=== PATIENT | male | born 1980 | race Caucasian/White ===

== ENCOUNTER 2024-07-02 19:26 | Inpatient (IN) ==
[2024-07-02 21:13] LABS: Appearance Urine Clear (Clear); Bacteria Urine Automated None Seen (None Seen); Bilirubin Urine Negative (Negative); Blood Urine 3+ (Negative); Cast Urine Automated 0-2 /lpf (0-2); Color Urine Yellow; Epithelial Cell Urine Auto 0-2 /hpf (0-2); Glucose Urine UA 2+ (Negative); Ketones Urine Trace (Negative); Leukocyte Esterase Urine Negative (Negative); Nitrite Urine Negative (Negative); Protein Urine 1+ (Negative); Specific Gravity Urine 1.031 (1.000-1.030); Urobilinogen Urine Negative (Negative); WBC Urine Automated 0-5 /hpf (0-5); pH Urine 5.5 (4.5-7.5)
[2024-07-02 21:31] LABS: Albumin Globulin Ratio 0.8 (0.9-2); Albumin Level 3.9 gm/dl (3.4-5.0); BUN Creatinine Ratio 16.7 (10-20); Bilirubin,Total 0.4 mg/dl (0.2-1.0); Calcium 8.9 mg/dl (8.6-10.3); Creatinine Clr Calc Pharmacy 107.1 ml/min; Globulin 4.6 gm/dl (2.5-4.0); Magnesium 2.1 mg/dl (1.7-2.4); Potassium 3.6 mmol/L (3.5-5.1); Total Protein 8.5 gm/dl (6.0-8.3)
[2024-07-02 21:35] LABS: Troponin I High Sensitivity 9.3 pg/ml (0-20)
[2024-07-02 21:36] LABS: INR 0.9 (0.9-1.1); Partial Thromboplastin Time 26 Seconds (21-31); Prothrombin Time 10.3 Seconds (9.0-12.0)
[2024-07-02] MEDS: ACETAMINOPHEN 500 MG TAB PO STA (22:10)
[2024-07-02] MEDS: SODIUM CHLORIDE 0.9% 1,000 ML IV SCH (22:10)
[2024-07-02] MEDS: cefTRIAXone SODIUM 2,000 MG/50 ML BAG IV STA (22:10)
[2024-07-02 22:57] LABS: Basophils # (auto) 0.03 K/uL (0.00-0.20); Basophils % (auto) 0.3 %; Eosinophils # (auto) 0.07 K/uL (0.00-0.50); Eosinophils % (auto) 0.8 %; Immature Granulocytes # (auto) 0.05 K/uL (0.01-0.20); Immature Granulocytes % (auto) 0.6 %; Lymphocytes # (auto) 1.19 K/uL (1.20-3.40); Lymphocytes % (auto) 13.2 %; Mean Corpuscular Hemoglobin 25.1 pg (25.0-34.0); Mean Corpuscular Hgb Conc 33.3 g/dL (32.0-36.0); Mean Corpuscular Volume 75.3 fL (80.0-100.0); Monocytes % (auto) 11.1 %; Neutrophils # (auto) 6.67 K/uL (1.40-6.50); Platelet Count 195 K/uL (130-400); RDW Coefficient of Variation 13.2 % (11.5-14.5); RDW Standard Deviation 35.5 fL (36.4-46.3); Red Blood Count 5.18 M/uL (4.70-6.10); White Blood Count 9.01 K/ul (4.8-10.8)
--- NOTE | 2024-07-02 23:18 | Emergency Department Note ---
History of Present Illness General Chief complaint: Leg Injury/Pain Stated complaint: CELLULITIS, MOVING UP THE RT THIGH, SWELLING, PAIN Time Seen by Provider: 07/02/24 21:33 History of Present Illness Maximum Pain Intensity: 7 This 43-year-old male that was seen at urgent care and started on Keflex the other day presents ER for worsening right leg pain and swelling. Patient is a type II diabetic on metformin. He states his cellulitis has spread and is more painful and swollen to him. Patient denies chest pain, dyspnea, cough, congestion, flulike illness. Home Medications Medication Instructions Recorded Confirmed Type aspirin 81 mg tablet,delayed 81 mg PO DAILY 07/02/24 07/02/24 History release insulin glargine-yfgn 100 unit/mL 30 unit subcut HS 07/02/24 07/02/24 History (3 mL) subcutaneous pen lisinopril 20 1 tab PO DAILY 07/02/24 07/02/24 History mg-hydrochlorothiazide 25 mg tablet metformin 500 mg tablet,extended 1,000 mg PO BID 07/02/24 07/02/24 History release 24 hr multivitamin 1 tab PO DAILY 07/02/24 07/02/24 History tirzepatide 5 mg/0.5 mL 5 mg subcut WK 07/02/24 07/02/24 History subcutaneous pen injector (Mounjaro) Allergies Allergy/AdvReac Type Severity Reaction Status Date / Time No Known Drug Allergies Allergy Verified 05/19/24 08:37 Past Med/Surg History Problem List (Updated 07/02/24 @ 23:18 by Alisia Woods PA-C) Acute hyperglycemia (Acute) Cellulitis of leg, right (Acute) Hx of knee surgery Operation Date: 04/01/23 s/p Right Open Quadricep Tendon Repair(Right) - Rosaura Montiel Obstructive sleep apnea of adult (Acute) Headache upon awakening (Acute) Hypersomnolence Quadriceps tendon rupture Knee effusion Rupture of right quadriceps tendon Encounter for pre-operative examination Morbid obesity KEYON on CPAP (Acute) Medical History (Updated 07/02/24 @ 23:18 by Alisia Woods PA-C) History of local anesthesia with dental work requires twice as much per pt Diabetes mellitus, type 2 Uncontrolled per PCP records History of hypertension Surgical History (Updated 04/01/23 @ 15:38 by Peggy Manuel PA-C) History of wisdom tooth extraction History of myringotomy History of adenoidectomy Family History Father Hypertension Stroke Mother Parkinsons disease Family history of thyroid problem Social History Smoking Status: Never smoker Do You Dip or Chew Tobacco: No; Hx Alcohol Use: Yes Alcohol type: beer Alcohol Intake Frequency Comment: Occasional Hx Substance Use: No Preferred Language: [place] Stitcher Tape Controlled Machine Required: No Beliefs That Will Affect Care: None Current Living Situation: Alone Feels Safe at Home: Yes Assistive Devices: Glasses Review of Systems A total of 10 systems reviewed and were otherwise negative Physical Exam Vital Signs Vital Signs - 24 hr 07/02/24 19:47 07/02/24 20:58 07/02/24 20:59 Temperature 37.8 C H Temperature Source Oral Pulse Rate 112 H Pulse Rate [Right Finger] Pulse Rhythm [Right Finger] Pulse Strength [Right Finger] Respiratory Rate 18 Respiratory Effort / Characteristics Non-Labored Spontaneous Respiratory Depth Normal Respiratory Pattern Regular Blood Pressure 140/84 Blood Pressure [Right Arm] Blood Pressure Mean 102 Blood Pressure Mean [Right Arm] Blood Pressure Position [Right Arm] Pulse Oximetry 97 Oxygen Delivery Method Room Air Room Air Room Air Sepsis Recent Fever Within 48 Hours Yes Sepsis New/Unexplained Change in Mental Status No Sepsis Action Taken by Nursing No Action Required 07/02/24 21:32 07/02/24 21:33 07/02/24 22:00 Temperature Temperature Source Pulse Rate 117 H Pulse Rate [Right Finger] 114 H 111 H Pulse Rhythm [Right Finger] Regular Pulse Strength [Right Finger] Normal Respiratory Rate 17 18 Respiratory Effort / Characteristics Non-Labored Spontaneous Respiratory Depth Normal Normal Respiratory Pattern Blood Pressure Blood Pressure [Right Arm] 161/83 H 150/109 H Blood Pressure Mean Blood Pressure Mean [Right Arm] 109 122 Blood Pressure Position [Right Arm] Sitting Pulse Oximetry 97 99 Oxygen Delivery Method Room Air Room Air Sepsis Recent Fever Within 48 Hours Sepsis New/Unexplained Change in Mental Status Sepsis Action Taken by Nursing 07/02/24 23:00 07/03/24 01:33 Temperature Temperature Source Pulse Rate 97 H Pulse Rate [Right Finger] 106 H Pulse Rhythm [Right Finger] Pulse Strength [Right Finger] Respiratory Rate 25 H Respiratory Effort / Characteristics Non-Labored Respiratory Depth Normal Respiratory Pattern Regular Blood Pressure Blood Pressure [Right Arm] 161/87 H Blood Pressure Mean Blood Pressure Mean [Right Arm] 111 Blood Pressure Position [Right Arm] Pulse Oximetry 98 Oxygen Delivery Method Room Air Sepsis Recent Fever Within 48 Hours Sepsis New/Unexplained Change in Mental Status Sepsis Action Taken by Nursing VITALS: Vitals are noted on the nurse's note and reviewed by myself. Vital signs stable. GENERAL: Pleasant gentleman, in no acute distress, nondiaphoretic, well- developed well-nourished. SKIN: Capillary reflex less than 2 seconds. HEENT: Normocephalic. PERRLA. EOMI. Nares patent. Mucous membranes moist. Neck is supple without nuchal rigidity. HEART: Regular rate and rhythm LUNGS: Clear to auscultation bilaterally without wheezes, rales or rhonchi. No retractions or accessory muscle use. ABDOMEN: Positive bowel sounds x 4. Normal tympanic percussion. Soft, nontender, without masses or organomegaly. Maldonado sign negative. No guarding or rebound tenderness. no CVA tenderness MUSCULOSKELETAL: No gross musculoskeletal defects. Right thigh and lower leg erythematous and edematous concerning for cellulitis. Pedal pulses +2 equal and present bilaterally. Right groin tender to palpation concerning for reactive lymph nodes. NEURO: Patient was alert and oriented to person place and time. No focal neurological deficits. Course Administered Medications Discontinued Medications Acetaminophen (Acetaminophen 500 Mg Tab) 1,000 mg PO NOW STA Stop: 07/02/24 21:43 Last Admin: 07/02/24 22:10 Dose: 1,000 mg Documented By: WINTER Sodium Chloride (Nss) 1,000 mls @ 999 mls/hr IV .Q1H1M LEONOR Stop: 07/02/24 23:45 Last Infusion: 07/03/24 00:53 Dose: Infused Documented By: Admin: 07/02/24 23:44 Dose: 999 mls/hr Documented By: Infusion: 07/02/24 23:43 Dose: Infused Documented By: Admin: 07/02/24 22:10 Dose: 999 mls/hr Documented By: WINTER Ceftriaxone Sodium (Rocephin) 2,000 mg in 50 mls @ 100 mls/hr IV NOW STA Stop: 07/02/24 22:11 Last Infusion: 07/02/24 23:30 Dose: Infused Documented By: Admin: 07/02/24 22:10 Dose: 100 mls/hr Documented By: WINTER Insulin Glargine (Lantus Per Unit Charge) 30 units SQ NOW STA Stop: 07/02/24 23:51 Last Admin: 07/03/24 00:25 Dose: 30 units Documented By: SHUKRI Co-signed By: KADE Medical Decision Making Medical Records Attestation: I reviewed the patient's medical records. Home Medications Current Medication List: was personally reviewed by me Laboratory Data Attestation: I reviewed the patient's lab results. 07/02/24 22:36 07/02/24 20:50 Lab Results 07/02/24 07/02/24 07/02/24 Range/Units 20:50 20:55 22:36 WBC 9.01 (4.8-10.8) K/ul RBC 5.18 (4.70-6.10) M/uL Hgb 13.0 L (14.0-18.0) g/dl Hct 39.0 L (42.0-52.0) % MCV 75.3 L (80.0-100.0) fL MCH 25.1 (25.0-34.0) pg MCHC 33.3 (32.0-36.0) g/dL RDW Std Deviation 35.5 L (36.4-46.3) fL RDW Coeff of Erin 13.2 (11.5-14.5) % Plt Count 195 (130-400) K/uL MPV 10.0 (9.4-12.4) fL Immature Gran % (Auto) 0.6 % Neut % (Auto) 74.0 % Lymph % (Auto) 13.2 % [place] % (Auto) 11.1 % Eos % (Auto) 0.8 % Baso % (Auto) 0.3 % Neut # (Auto) 6.67 H (1.40-6.50) K/uL Lymph # (Auto) 1.19 L (1.20-3.40) K/uL [place] # (Auto) 1.00 H (0.11-0.59) K/uL Eos # (Auto) 0.07 (0.00-0.50) K/uL Baso # (Auto) 0.03 (0.00-0.20) K/uL Immature Gran # (Auto) 0.05 (0.01-0.20) K/uL PT 10.3 (9.0-12.0) Seconds INR 0.9 (0.9-1.1) APTT 26 (21-31) Seconds PTT Ratio 1.0 Sodium 131 L (136-145) mmol/L Potassium 3.6 (3.5-5.1) mmol/L Chloride 96 L (98-107) mmol/L Carbon Dioxide 27 (21-32) mmol/L Anion Gap 8 (3-11) BUN 21 (6-23) mg/dl Creatinine 1.26 (0.6-1.4) mg/dl Est Cr Clr Drug Dosing 107.1 ml/min eGFR 72.13 BUN/Creatinine Ratio 16.7 (10-20) Glucose 317 H* (70-99(Fasting)) mg/dl Lactate 1.8 (0.4-2.0) mmol/L Calcium 8.9 (8.6-10.3) mg/dl Magnesium 2.1 (1.7-2.4) mg/dl Total Bilirubin 0.4 (0.2-1.0) mg/dl AST 12 L (13-39) U/L ALT 20 (7-52) U/L Alkaline Phosphatase 95 (34-104) U/L Troponin I High Sens 9.3 (0-20) pg/ml Total Protein 8.5 H (6.0-8.3) gm/dl Albumin 3.9 (3.4-5.0) gm/dl Globulin 4.6 H (2.5-4.0) gm/dl Albumin/Globulin Ratio 0.8 L (0.9-2) Procalcitonin 0.47 (0-0.5) ng/ml Urine Color Yellow Urine Appearance Clear (Clear) Urine pH 5.5 (4.5-7.5) Ur Specific [place] 1.031 H (1.000-1.030) Urine Protein 1+ H (Negative) Urine Glucose (UA) 2+ H (Negative) Urine Ketones Trace H (Negative) Urine Blood 3+ H (Negative) Urine Nitrite Negative (Negative) Urine Bilirubin Negative (Negative) Urine Urobilinogen Negative (Negative) Ur Leukocyte Esterase Negative (Negative) Urine WBC (Auto) 0-5 (0-5) /hpf Urine RBC (Auto) 6-10 H (0-2) /hpf U Hyaline Cast (Auto) 0-2 (0-2) /lpf U Epithel Cells (Auto) 0-2 (0-2) /hpf Urine Bacteria (Auto) None Seen (None Seen) Imaging Data Attestation: I personally reviewed and interpreted this imaging study as follows: Radiologist's Impression: Chest X-Ray 07/02/24 19:51 Exam(s): XR CXR 1 VIEW EXAM: XR Chest, 1 View CLINICAL HISTORY: Reason for exam: Sepsis. TECHNIQUE: Frontal view of the chest. COMPARISON: No relevant prior studies available. FINDINGS: Lungs: Unremarkable. No consolidation. Pleural space: Unremarkable. No pleural effusion or pneumothorax. Heart: Unremarkable. No cardiomegaly or pulmonary vascular congestion. Bones/joints: No acute fracture. No dislocation. IMPRESSION: No evidence of acute cardiopulmonary disease. Electronically signed by: Sukumar Lees M.D. 07/03/24 01:27 AM Venous Doppler Study 07/02/24 19:52 Exam(s): US VENOUS RIGHT LOWER EXTREMITY EXAM: US Duplex Right Lower Extremity Veins CLINICAL HISTORY: Reason for exam: reddness swelling. TECHNIQUE: Real-time duplex ultrasound scan of the right lower extremity veins integrating B-mode two-dimensional vascular structure, Doppler spectral analysis, color flow Doppler imaging and compression. COMPARISON: No relevant prior studies available. FINDINGS: Deep veins: Unremarkable. No DVT in the visualized common femoral, femoral, proximal deep femoral or popliteal veins. The veins demonstrate normal color flow, are normally compressible, with normal phasic flow and/or augmentation response. Superficial veins: Unremarkable. No thrombus in the visualized great saphenous vein. Soft tissues: Soft tissue edema and enlarged right inguinal lymph nodes. IMPRESSION: 1. Enlarged right inguinal lymph nodes may be reactive. Soft tissue edema may represent cellulitis. 2. No evidence of acute DVT. Electronically signed by: Sukumar Lees M.D. 07/03/24 01:22 AM MDM Narrative Prior records reviewed and summarized as above. Triage Nursing notes reviewed. Additional history obtained from nursing. The patient's history was concerning for swelling and redness of the skin. Differential diagnosis: Etiologies such as cellulitis, abscess, MRSA infection, DVT, necrotizing fasciitis, dermatitis, drug eruption, as well as others were entertained.. Physical examination: The physical examination was consistent with cellulitis ER treatment provided: Rocephin, IV fluids On reassessment the patient felt better. Diagnostics interpreted by me: The labs Independently Interpreted by myself revealed hyperglycemia without DKA. Negative lactic Imaging studies: Imaging was reviewed and read by radiology Consultation: A consultation was placed with the hospitalist. The case was discussed and diagnostics were reviewed. The patient was evaluated in the ER for further treatment. This appears to be worsening right leg cellulitis. Symptoms described greatly over the past day despite being on antibiotics. His blood sugars quite elevated. No DKA. He was started on IV antibiotics. Medicine was consulted the case is discussed. He will be admitted to the medical service. By the evaluation outlined above emergent etiologies such as abscess, necrotizing fasciitis, DVT, as well as others were deemed relatively unlikely. The pt informed about the findings as listed above. All questions were answered and pleased with the treatment. The chart was completed utilizing [email or web address] Speech voice recognition software. Grammatical errors, random word insertions, pronoun errors, and incomplete sentences are an occassional consequence of this system due to software limitations, ambient noise, and hardware issues. Any formal questions or concerns about the content, text, or information contained within the body of this dictation should be directly addressed to the physician clinical medical assistant for clarification. Impression & Plan Cellulitis of leg, right, Acute hyperglycemia Discharge Plan Visit Data Chief Complaint: Leg Injury/Pain Stated Complaint: CELLULITIS, MOVING UP THE RT THIGH, SWELLING, PAIN ED Provider: Chris Russell ED Midlevel Provider: Alisia Woods Discharge Problem: Cellulitis of leg, right, Acute hyperglycemia Patient Disposition: Admitted As Inpatient Condition: Good Forms Stand Alone Forms: My [facility] [place] Prescriptions Prescriptions: No Action multivitamin Tablet 1 tab PO DAILY aspirin 81 mg Tablet,Delayed Release (Dr/Ec) 81 mg PO DAILY lisinopril-hydrochlorothiazide 20-25 mg tablet 1 tab PO DAILY metformin 500 mg tablet extended release 24 hr 1,000 mg PO BID insulin glargine-yfgn 100 unit/mL (3 mL) insulin pen 30 unit SUBCUT HS Mounjaro 5 mg/0.5 mL pen injector 5 mg SUBCUT WK Referrals Referrals: Autumn Castellanos CRNP [Primary Care Provider] -
--- NOTE | 2024-07-02 23:44 | History & Physical Report ---
Date of Service July 02, 2024 Assessment & Plan (1) Cellulitis of leg, right: Plan: 43-year-old male with past med history significant for type 2 diabetes, sleep apnea, nocturnal hypoxemia, chronic venous stasis dermatitis of both lower extremities, hypertension, obesity, history of cellulitis of left lower extremity, attention deficit non hyperactive presents with right lower EXTR cellulitis. Patient developed some erythema in the right lower extremity on 06/30/2023. Went to urgent care and prescribed Keflex 500 milligrams twice daily. But right lower extremity edema and pain was getting worse The erythema streak spreading to thighs.. Last night he had some fever. Able to ambulate but having lot of pain in the right leg. Hemodynamics are okay. Denies any chest pain or shortness of breath no nausea. No abdominal pain. Normal bowel and bladder movements. No headache no runny nose or sore throat. No cough. Cellulitis right leg Failed outpatient treatment Will follow Doppler Received Rocephin in the ER Continue with IV cefepime and Vanco Follow cultures Monitor the response Diabetes Hyperglycemia Continue home Lantus Sliding scale Closely monitor Obstructive sleep apnea CPAP nightly Hypertension Continue home lisinopril hydrochlorothiazide Will monitor DVT prophylaxis hep sub q Disposition med floor Full code History of Present Illness Chief Complaint: Right leg cellulitis Primary Care Provider: LV Cain 43-year-old male with past med history significant for type 2 diabetes, sleep apnea, nocturnal hypoxemia, chronic venous stasis dermatitis of both lower extremities, hypertension, obesity, history of cellulitis of left lower extremity, attention deficit non hyperactive presents with right lower EXTR cellulitis. Patient developed some erythema in the right lower extremity on 06/30/2023. Went to urgent care and prescribed Keflex 500 milligrams twice daily. But right lower extremity edema and pain was getting worse The erythema streak spreading to thighs.. Last night he had some fever. Able to ambulate but having lot of pain in the right leg. Hemodynamics are okay. Denies any chest pain or shortness of breath no nausea. No abdominal pain. Normal bowel and bladder movements. No headache no runny nose or sore throat. No cough. Past medical history. As mentioned above Past surgical history. Reconstruction of middle ear and mastoid. Adenoidectomy. Social history. No smoking. Alcohol 1 beer per week. No drug use. Family history. Mother has arthritis. Parkinsonism. Thyroid disorder. Father has dyslipidemia. Hypertension. Uncle has diabetes. Maternal grandmother had parkinsonism. Allergies Allergy/AdvReac Type Severity Reaction Status Date / Time No Known Drug Allergies Allergy Verified 05/19/24 08:37 Home Medications Medication Instructions Recorded Confirmed Type aspirin 81 mg tablet,delayed 81 mg PO DAILY 07/02/24 07/02/24 History release insulin glargine-yfgn 100 unit/mL 30 unit subcut HS 07/02/24 07/02/24 History (3 mL) subcutaneous pen lisinopril 20 1 tab PO DAILY 07/02/24 07/02/24 History mg-hydrochlorothiazide 25 mg tablet metformin 500 mg tablet,extended 1,000 mg PO BID 07/02/24 07/02/24 History release 24 hr multivitamin 1 tab PO DAILY 07/02/24 07/02/24 History tirzepatide 5 mg/0.5 mL 5 mg subcut WK 07/02/24 07/02/24 History subcutaneous pen injector (Philippundarrenro) Past Med/Surg History Problem List (Updated 07/02/24 @ 23:18 by Alisia Woods PA-C) Acute hyperglycemia (Acute) Cellulitis of leg, right (Acute) Hx of knee surgery Operation Date: 04/01/23 s/p Right Open Quadricep Tendon Repair(Right) - Rosaura Montiel Obstructive sleep apnea of adult (Acute) Headache upon awakening (Acute) Hypersomnolence Quadriceps tendon rupture Knee effusion Rupture of right quadriceps tendon Encounter for pre-operative examination Morbid obesity KEYON on CPAP (Acute) Medical History (Updated 07/02/24 @ 23:18 by Alisia Woods PA-C) History of local anesthesia with dental work requires twice as much per pt Diabetes mellitus, type 2 Uncontrolled per PCP records History of hypertension Surgical History (Updated 04/01/23 @ 15:38 by Peggy Manuel PA-C) History of wisdom tooth extraction History of myringotomy History of adenoidectomy Family History Father Hypertension Stroke Mother Parkinsons disease Family history of thyroid problem Social History Smoking Status: Never smoker Do You Dip or Chew Tobacco: No; Hx Alcohol Use: Yes Alcohol type: beer Alcohol Intake Frequency Comment: Occasional Hx Substance Use: No Preferred Language: Salvadorean Communication Ability: Effective Manager Of Organizational Development Required: No Beliefs That Will Affect Care: None Current Living Situation: Alone Current Living Situation Comment: lives alone in a 2 story home Other Information That Helps Us Care for You: No Feels Safe at Home: Yes Safety Concerns: Feels Safe At This Time Assistive Devices: CPAP and Glasses Review of Systems Review of Systems: All systems reviewed & are unremarkable except as noted in HPI & below Physical Exam Physical Exam: General- Not in distress Head- atraumatic Eyes- PERRL. ENT- oropharynx clear Neck- supple, no JVD. Lungs- clear to auscultation no wheezing or crackles Heart- regular rate and rhythm; no murmur, no gallop. Abdomen- normal bowel sounds, soft, nontender, no distension. Extremities- right lower extremity dstal region erythematous and mild erythema streak seen in medial aspect of thigh. Neuro- alert, orientedPERRL, EOMI; no facial palsy; no dysarthria; moves extremities Results & Data Results & Data Vital Signs (Past 12 Hours) Vital Signs Temp Pulse Pulse Resp BP BP Pulse Ox 07/02/24 23:00 106 H 25 H 161/87 H 98 07/02/24 22:00 111 H 18 150/109 H 99 07/02/24 21:33 117 H 07/02/24 21:32 114 H 17 161/83 H 97 07/02/24 20:59 07/02/24 20:58 07/02/24 19:47 37.8 C H 112 H 18 140/84 97 O2 Del Method 07/02/24 23:00 Room Air 07/02/24 22:00 Room Air 07/02/24 21:33 07/02/24 21:32 Room Air 07/02/24 20:59 Room Air 07/02/24 20:58 Room Air 07/02/24 19:47 Room Air Diagnostic Findings Laboratory Results WBC 9.01 K/ul (4.8-10.8) 07/02/24 22:36 RBC 5.18 M/uL (4.70-6.10) 07/02/24 22:36 Hgb 13.0 g/dl (14.0-18.0) L 07/02/24 22:36 Hct 39.0 % (42.0-52.0) L 07/02/24 22:36 MCV 75.3 fL (80.0-100.0) L 07/02/24 22:36 MCH 25.1 pg (25.0-34.0) 07/02/24 22:36 MCHC 33.3 g/dL (32.0-36.0) 07/02/24 22:36 RDW Std Deviation 35.5 fL (36.4-46.3) L 07/02/24 22:36 RDW Coeff of Erin 13.2 % (11.5-14.5) 07/02/24 22:36 Plt Count 195 K/uL (130-400) 07/02/24 22:36 MPV 10.0 fL (9.4-12.4) 07/02/24 22:36 Immature Gran % (Auto) 0.6 % 07/02/24 22:36 Neut % (Auto) 74.0 % 07/02/24 22:36 Lymph % (Auto) 13.2 % 07/02/24 22:36 [place] % (Auto) 11.1 % 07/02/24 22:36 Eos % (Auto) 0.8 % 07/02/24 22:36 Baso % (Auto) 0.3 % 07/02/24 22:36 Neut # (Auto) 6.67 K/uL (1.40-6.50) H 07/02/24 22:36 Lymph # (Auto) 1.19 K/uL (1.20-3.40) L 07/02/24 22:36 [place] # (Auto) 1.00 K/uL (0.11-0.59) H 07/02/24 22:36 Eos # (Auto) 0.07 K/uL (0.00-0.50) 07/02/24 22:36 Baso # (Auto) 0.03 K/uL (0.00-0.20) 07/02/24 22:36 Immature Gran # (Auto) 0.05 K/uL (0.01-0.20) 07/02/24 22:36 PT 10.3 Seconds (9.0-12.0) 07/02/24 20:50 INR 0.9 (0.9-1.1) 07/02/24 20:50 APTT 26 Seconds (21-31) 07/02/24 20:50 PTT Ratio 1.0 07/02/24 20:50 Sodium 131 mmol/L (136-145) L 07/02/24 20:50 Potassium 3.6 mmol/L (3.5-5.1) 07/02/24 20:50 Chloride 96 mmol/L (98-107) L 07/02/24 20:50 Carbon Dioxide 27 mmol/L (21-32) 07/02/24 20:50 Anion Gap 8 (3-11) 07/02/24 20:50 BUN 21 mg/dl (6-23) 07/02/24 20:50 Creatinine 1.26 mg/dl (0.6-1.4) 07/02/24 20:50 Est Cr Clr Drug Dosing 107.1 ml/min 07/02/24 20:50 eGFR 72.13 07/02/24 20:50 BUN/Creatinine Ratio 16.7 (10-20) 07/02/24 20:50 Glucose 317 mg/dl (70-99(Fasting)) H* 07/02/24 20:50 Lactate 1.8 mmol/L (0.4-2.0) 07/02/24 20:50 Calcium 8.9 mg/dl (8.6-10.3) 07/02/24 20:50 Magnesium 2.1 mg/dl (1.7-2.4) 07/02/24 20:50 Total Bilirubin 0.4 mg/dl (0.2-1.0) 07/02/24 20:50 AST 12 U/L (13-39) L 07/02/24 20:50 ALT 20 U/L (7-52) 07/02/24 20:50 Alkaline Phosphatase 95 U/L (34-104) 07/02/24 20:50 Troponin I High Sens 9.3 pg/ml (0-20) 07/02/24 20:50 Total Protein 8.5 gm/dl (6.0-8.3) H 07/02/24 20:50 Albumin 3.9 gm/dl (3.4-5.0) 07/02/24 20:50 Globulin 4.6 gm/dl (2.5-4.0) H 07/02/24 20:50 Albumin/Globulin Ratio 0.8 (0.9-2) L 07/02/24 20:50 Procalcitonin 0.47 ng/ml (0-0.5) 07/02/24 20:50 Urine Color Yellow 07/02/24 20:55 Urine Appearance Clear (Clear) 07/02/24 20:55 Urine pH 5.5 (4.5-7.5) 07/02/24 20:55 Ur Specific [place] 1.031 (1.000-1.030) H 07/02/24 20:55 Urine Protein 1+ (Negative) H 07/02/24 20:55 Urine Glucose (UA) 2+ (Negative) H 07/02/24 20:55 Urine Ketones Trace (Negative) H 07/02/24 20:55 Urine Blood 3+ (Negative) H 07/02/24 20:55 Urine Nitrite Negative (Negative) 07/02/24 20:55 Urine Bilirubin Negative (Negative) 07/02/24 20:55 Urine Urobilinogen Negative (Negative) 07/02/24 20:55 Ur Leukocyte Esterase Negative (Negative) 07/02/24 20:55 Urine WBC (Auto) 0-5 /hpf (0-5) 07/02/24 20:55 Urine RBC (Auto) 6-10 /hpf (0-2) H 07/02/24 20:55 U Hyaline Cast (Auto) 0-2 /lpf (0-2) 07/02/24 20:55 U Epithel Cells (Auto) 0-2 /hpf (0-2) 07/02/24 20:55 Urine Bacteria (Auto) None Seen (None Seen) 07/02/24 20:55 ECG Additional Comments: ECG sinus tachycardia rate of 113. Left axis deviation. Incomplete right bundle branch block. Code Status & VTE Plan VTE Prophylaxis Plan VTE Prophylaxis will be ordered: Yes
[2024-07-03] MEDS: LANTUS PER UNIT CHARGE SQ STA (00:25)
--- OUTSIDE RECORDS SUMMARY | 2024-07-03 01:00 | External Medical Summary | Summary of Care ---
Author Name Unknown Organization [facility] Address [address] [facility] [place] [place] [address] Phone [phone] Care Team Providers Care Distribution Operation Supervisor Name Role Phone Autumn Castellanos Primary Care Provider Encounter Details Date Type Department Care Team (Late st Contact Info) Description 06/11/2024 8:40 AM EST Office Visit Family Medicine [address] [place] [address] Marianela Jenkins PA-C [address] [place] [address] [place] [phone] [facility] Commercial Representative's Physical* Allergies Active Allergy Reactions Criticality Noted Date Comments Cat Dander 02/12/2007 Dust 02/12/2007 Shellfish Allergy Edema face/lips/tongue High 2014 fish documented as of this encounter (statuses as of 06/11/2024) Medications MULTI-VITAMIN PO TABS None Entered Active Blood Glucose Monitoring Suppl (D-CARE GLUCOMETER) W/DEVICE KIT Use 1 Kit as directed 2 times a day. verio Include test strips & lancets 1 Kit 1 7 Active aspirin 81 MG chewable tablet Take 1 Tab by mouth daily. with food. 100 Tab 5 8 Active OneTouch Ultra In Vitro Strip (Glucose Blood)Indication s:Type 2 diabetes mellitus with hemoglobin A1c goal of less than 7.0% ([facility]) USE ONCE DAILY DX: E11.9 100 Strip 3 3 Active Silver sulfADIAZINE 1 % External Cream (Silvadene) Apply to bilateral lower extremity wounds daily 50 g 1 4 Active Additional Information Patient not taking.Reported on 04/16/2024 Ibuprofen 200 MG Oral Tablet (Motrin) Take 3 Tablets by mouth at bedtime. 3 Active Pen Novi 32G X 4 MM Use as directed. Use to inject insulin once daily 4 Active Mounjaro 5 MG/0.5ML Subcutaneous Solution Pen-injector (Tirzepatide) Inject 5 mg under the skin once a week. 2 mL 11 4 11/24/19 25 Active metFORMIN HCl ER 500 MG Oral Tablet Extended Release 24 Hour (Glucophage XR) TAKE 2 TABLETS BY MOUTH TWICE A DAY 360 Tablet 4 Active Lisinopril-hydro CHLOROthiazide 20-25 MG Oral Tablet TAKE 1 TABLET BY MOUTH EVERY DAY IN THE MORNING 90 Tablet 4 Active Insulin Glargine Solostar 100 UNIT/ML Subcutaneous Solution Pen-injector (Lantus SoloStar) Inject 30 Units under the skin at bedtime. 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 Chronic venous stasis dermatitis of both lower e xtremities 09/25/2016 HTN, goal below 140/90 09/25/2016 Type 2 diabetes mellitus wit h hemoglobin A1c goal of less than 7.0% 07/02/2016 Nocturnal hypoxemia 02/09/2015 KEYON (obstructive sleep apnea) 02/03/2015 Overview (02/03/2015): Severe KEYON on HST 01/24/15: AHI was 80.6 with significant nocturnal hypoxemia ATTN DEFIC NONHYPERACT 12/20/2004 documented as of this encounter (statuses as of 06/11/2024) Resolved Problems Problem Noted Date Diagnosed Date Resolved Date Diabetes with skin ulcer 02/05/2017 HTN, goal below 130/80 09/25/201601/07 Obesity, morbid (more than 1 00 lbs over ideal weight or BMI > 40) 02/09/2015 10/29/2023 Body mass index (BMI) of 40.0-44.9 in adult 09/27/2010 03/20/2017 Overview: Per Obesity protocol #1 - ICD-10 update of inactive term Impacted cerumen 07/06/2009 02/02/2018 Acute bronchitis, complicated 05/09/2009 05/29/2016 ADVANCE DIRECTIVE INFORMATION 11/05/2005 04/19/2024 Overview (11/05/2005): Pt declines booklet. OBESITY, UNSPECIFIED 12/21/2004 011 Elevated blood pressure, situational 12/20/2004 09/25/2016 documented as of this encounter (statuses as of 06/11/2024) Immunizations Name Administration Dates Next Due COVID-19 mRNA, LNP-s, No Pre serve, 2-Dose Series (Pfizer) 07/04/2021,10/14/2020,09/23/2020 Hepatitis B, 20+ yrs 07/24/2019,05/28/2019,01/25 Pneumococcal Polysaccharide PPV23 (Pneumovax) 02/02/2018 Seasonal Influenza, PF, 6 M & above, IM , (FluLaval or Fluzone) 06/24/2023,03/26/2022,05/28/2019 Seasonal Influenza, Quadriva lent, No Preserve, IM 03/13/2016 TDAP (age 10 and older)(Boostrix) 01/25/2019 TDAP, Age 7 and older, IM (Adacel) 01/09/2009 documented as of this encounter Social History Tobacco Use Types Packs/Day Years Used Date Smoking Tobacco: Never Smokeless Tobacco: Never Alcohol Use Standard Drinks/Week Comments Yes 0 (1 standard drink = 0.6 oz pur e alcohol) 1 beer per week PHQ-2 Answer Date Recorded PHQ Adult Total Score 1 03/26/2022 Hunger Vital Sign Answer Date Recorded Within the past 12 months, y ou worried that your food would run out before you got the money to buy more. Never true 06/02/20 24 Within the past 12 months, t he food you bought just didn't last and you didn't have money to get more. Never true 06/02/2024 Childcare Answer Date Recorded Do you feel overwhelmed with taking care of a child, family member or friend? No 06/02/2024 Does your family need help f inding childcare? (Household - for ages 0-17 years) Not on file 06/02/2024 Clothing Answer Date Recorded Have you been unable to get clothing when it was really needed? No 06/02/2024 Is your family able to get c lothes or diapers when needed? (Household - for ages 0-17 years) Not on file 06/02/2024 Personal Safety Answer Date Recorded Do you feel unsafe or have concerns for your saf ety? No 06/02/2024 Do you have concerns for you r family's safety? (Household - for ages 0-17 years) Not on file 06/02/2024 Utilities Answer Date Recorded Do you have trouble paying y our heating, water, or electric bill? No 06/02/2024 Is your family able to pay t he heat, water, or electric bill? (Household - for ages 0-17 years) Not on file 06/02/2024 Does your family have access to good internet? (Household - for ages 0-17 years) Not on file 06/02/2024 Employment Status Answer Date Recorded Are you unemployed or without regular income? No 06/02/2024 Does the household have a re gular source of income? (Household - for ages 0-17 years) Not on file 06/02/2024 Social Connections Answer Date Recorded How often do you feel lonely or isolated from th ose around you? Never 06/02/2024 Financial Resource Strain Answer Date R ecorded Do you have any trouble payi ng for your medications, or do you think you might in the future? No 06/02/2024 Does your family have troubl e paying for medicine? (Household - for ages 0-17 years) Not on file 06/02/2024 Transportation Needs Answer Date Record ed Do you have trouble getting a ride to medical visits or work? (Adult - for ages 18 years and over) Not on file 06/02/2024 Does your family have a hard time getting a ride to doctors visits? (Household - for ages 0-17 years) Not on file 06/02/2024 Has lack of transportation k ept you from medical appointments, meetings, work, or from getting things needed for daily living? Check all that apply. No 06/02/2024 Do you (or your family) have trouble finding or paying for a ride (transportation)? (Household - for ages 0-17 years) Not on file 06/02/2024 Housing Stability Answer Date Recorded Do you currently live in a s helter or have no steady place to sleep at night? No 06/02/2024 Do you think you are at risk of becoming homeless? (Adult - for ages 18 years and over) Not on file 06/02/2024 Does your family worry about paying for your home or becoming homeless? (Household - for ages 0-17 years) Not on file 1 08/03/2023 Are you homeless or worried that you might be in the future? No 06/02/2024 Are you (or your family) julio eless or worried that you might be in the future? (Household - for ages 0-17 years) Not on file Food Insecurity Answer Date Recorded Do you need food for this week? No 06/02/2024 Are you able to get enough f ood for your family? (Household - for ages 0-17 years) Not on file 06/02/2024 Does your family need food t his week? (Household - for ages 0-17 years) Not on file 06/02/2024 Do you always have enough fo od for your family? (Household - for ages 0-17 years) Not on file 06/02/2024 Sex and Gender Information Value Date Recorded Sex Assigned at Male 03/25/2023 1:47 PM EDT Legal Sex Male 5:57 AM EST Gender Identity Male 03/25/2023 1:47 PM EDT Sexual Orientation Choose not to disclose 2022 1:47 PM EDT documented as of this encounter Last Filed Vital Signs Vital Sign Reading Time Taken Comments Blood Pressure - - Pulse 88 06/11/2024 8:17 AM EST Temperature 36.3 C (97.4 F) 06/11/2024 8:17 AM ES T Respiratory Rate - - Oxygen Saturation 96% 06/11/2024 8:17 AM EST Inhaled Oxygen Concentration - - Weight 153 kg (337 lb 6.4 oz) 06/11/2024 8:17 AM EST Height 190.5 cm (6' 3") 06/11/2024 8:17 AM EST Body Mass Index 42.17 06/11/2024 8:17 AM EST documented in this encounter Progress Notes * Marianela Jenkins PA-C - 06/11/2024 8:36 AM EST Pt here today for CDL PE. Review of patient's allergies indicates: Allergen Reactions Shellfish Allergy Edema face/lips/tongue fish Cat Dander Dust Current Outpatient Medications Medication Sig Dispense Refill MULTI-VITAMIN PO TABS None Entered Blood Glucose Monitoring Suppl (D-CARE GLUCOMETER) W/DEVICE KIT Use 1 Kit as directed 2 times a day. verio Include test strips & lancets 1 Kit 1 aspirin 81 MG chewable tablet Take 1 Tab by mouth daily. with food. 100 Tab 5 OneTouch Ultra In Vitro Strip (Glucose Blood) USE ONCE DAILY DX: E11.9 100 Strip 3 Silver sulfADIAZINE 1 % External Cream (Silvadene) Apply to bilateral lower extremity wounds daily (Patient not taking: Reported on 04/16/2024) 50 g 1 Ibuprofen 200 MG Oral Tablet (Motrin) Take 3 Tablets by mouth at bedtime. Pen Novi 32G X 4 MM Use as directed. Use to inject insulin once daily Mounjaro 5 MG/0.5ML Subcutaneous Solution Pen-injector (Tirzepatide) Inject 5 mg under the skin once a week. 2 mL 11 metFORMIN HCl ER 500 MG Oral Tablet Extended Release 24 Hour (Glucophage XR) TAKE 2 TABLETS BY MOUTH TWICE A DAY 360 Tablet 0 Lisinopril-hydroCHLOROthiazide 20-25 MG Oral Tablet TAKE 1 TABLET BY MOUTH EVERY DAY IN THE [id number] Tablet 0 Insulin Glargine Solostar 100 UNIT/ML Subcutaneous Solution Pen-injector (Lantus SoloStar) Inject 30 Units under the skin at bedtime. 30 mL 5 No current facility-administered medications for this visit. Past Medical History: Diagnosis Date Diabetes (HCC) Hypertension Social History Socioeconomic History Marital status: Single Spouse name: Not on file Number of children: Not on file Years of education: Not on file Highest education level: Not on file Occupational History Not on file Tobacco Use Smoking status: Never Smokeless tobacco: Never Vaping Use Vaping status: Never Used Substance and Sexual Activity Alcohol use: Yes Comment: 1 beer per week Drug use: No Sexual activity: Not on file Other Topics Concern Not on file Social History Narrative JANENE Regional Account Manager Social Needs Financial Resource Strain: Low Risk (06/02/2024) Financial Resource Strain Do you have any trouble paying for your medications, or do you think you might in the future? (Adult - for ages 18 years and over): No Does your family have trouble paying for medicine? (Household - for ages 0-17 years): Not on file Food Insecurity: No Food Insecurity (06/02/2024) Food Insecurity Do you need food for this week? (Adult - for ages 18 years and over): No Are you able to get enough food for your family? (Household - for ages 0-17 years): Not on file Does your family need food this week? (Household - for ages 0-17 years): Not on file Do you always have enough food for your family? (Household - for ages 0-17 years): Not on file Transportation Needs: No Transportation Needs (06/02/2024) Transportation Needs Do you have trouble getting a ride to medical visits or work? (Adult - for ages 18 years and over):Not on file Does your family have a hard time getting a ride to doctors visits? (Household - for ages 0-17 years): Not on file Has lack of transportation kept you from medical appointments, meetings, work, or from getting things needed for daily living? Check all that apply. (Adult - for ages 18 years and over): No Do you (or your family) have trouble finding or paying for a ride (transportation)? (Household - for ages 0-17 years): Not on file Social Connections: Socially Integrated (06/02/2024) Social Connections How often do you feel lonely or isolated from those around you? (Adult - for ages 18 years and over): Never Housing Stability: Low Risk (06/02/2024) Housing Stability Do you currently live in a group home or have no steady place to sleep at night? (Adult - for ages 18 years and over): No Do you think you are at risk of becoming homeless? (Adult - for ages 18 years and over): Not on file Does your family worry about paying for your home or becoming homeless? (Household - for ages 0-17 years): Not on file Are you homeless or worried that you might be in the future? (Adult - for ages 18 years and over): No Are you (or your family) homeless or worried that you might be in the future? (Household - for ages0-17 years): Not on file O: ICC Physical Examination [place] [employer] Date of exam: June 11, 2024 Certification: Recertification Commercial Representative's Name: Darius Callejas [address]: [address] [place] [id number] SSN: [id number] Date of : 1980 Age: [age] year old Sex: male Phone: Home/Work: There are no phone numbers on file. Commercial Representative License No: [id number] License class-A,B,C,D, other: State of issue: [place] Health History: Any illness or injury in the last 5 years: no Head/Brain injuries, disorders or illnesses: no Seizures, epilepsy: no If yes- Medication: na Eye disorders or impaired vision (except corrective lenses): no Ear disorders, loss of hearing or balance: no Heart disease or heart attack; other cardiovascular condition: no If yes- Medication: na Heart surgery (valve replacement/bypass, angioplasty, pacemaker): no High blood pressure: yes: HTN If yes-Medication: lisinopril/HCTZ Shortness of breath: no Lung disease, emphysema, asthma, chronic bronchitis: no Kidney disease, dialysis: no Liver disease: no Digestive problems: no Diabetes or elevated blood sugar controlled by: yes: DM Diet/pills/insulin: insulin - mounjaro Nervous or psychiatric disorders, e.g., servere depression: no If yes- Medication: Loss of,or altered consciousness: no Fainting, dizziness: no Sleep disorders, pauses in breathing while asleep, daytime sleepiness, loud snoring: no Stroke or paralysis: no Missing or impaired hand, arm, foot, leg, finger, toe: no Spinal injury or disease: no Chronic low back pain: no Regular, frequent alcohol use: no Narcotic or habit forming drug use: no For any YES answer, indicate onset date, diagnosis, treating physicians name and address, and any curret limitations: List all medications (including over the counter medications) used regularly or recently. General appearance and development: Vision: acuity, color vision, field of vision as noted above Evidence of disease or injury: Right: no Right: 20/25 Left: no Left: 20/20 Both: no Both: 20/20 Corrected: Horizontal Field Of Vision: Right eye: 20/25 Right eye: 90 Left eye: 20/20 Left eye: 90 Applicant can recognize and distinguish amount traffic control signals and devices showing standardred, green and annelise: yes Applicant meets visual acuity requirement only when wearing: Corrective lenses: yes Monocular Vision: no Hearing: Audiometric screen as noted above. Right: Normal Left: Normal Evidence of disease or injury: no Pulse 88 | Temp 97.4 F (36.3 C) (Tympanic) | Ht 6' 3" (1.905 m) | Wt (!) 337 lb 6.4 oz (153 kg)| SpO2 96% | BMI 42.17 kg/m | BSA 2.85 m General appearance: normal Eyes: Normal Ears: Normal Mouth/Throat: Normal Thorax: Heart: Normal If organic disease is present, is it fully compensated? N/A Blood Pressure: 122/86 Pulse: 88 Lungs: Normal Abdomen: Scars: no Abnormal masses: no Tenderness: no Hernia: no Is truss worn? no Vascular disease: no Gastrointestinal: Ulceration or other diseases: no Genito-urinary: Scars: no Urethral discharge: no Reflexes: Rhomberg: Normal Pupillary: Normal Light: Right: Normal Left: Normal Accomodation: Right: Normal Left: Normal Knee Jerks: Right: normal Left: normal Remarks: Extremities: Upper: Normal Lower: Normal Spine: Normal Laboratory and other special findings: Urine: Specific Hagerman: 1.030 Albumin: Abnormal: 100 Sugar: Abnormal: 500 Other laboratory data: Serology: Radiologic data: Electrocardiograph: Controlled substances testing: Controlled substances test not performed General comments: normal PE Meets standards in 49 CFR 391.41; qualifies for 2 year certificate: NO Does not meet standards: N/A Meets standards, but periodic monitoring required due to: HTN/DM Commercial Representative qualified only for: 3, 6, l year, other: months allowed/n/a: 1 year Temporarily disqualified due to (condition or medication): N/A Return to medical radiation therapist's office for follow up on: not applicable Wearing corrective lenses: yes Wearing hearing aid: no Accompanied by a waiver/exemption. Commercial Representative must present exemption at time of certification. N/A Skill Performance Evaluation (SPE) Certificate. N/A Driving within an exempt intracity zone (See 49 CFR 391.62): N/A Qualified by operation of 49 CFR 391.64: N/A Signature of medical provider Name of medical radiation therapist: Marianela Jenkins PA-C Address of medical radiation therapist: [address] [facility] [address] cigar packing examiner's Certificate to be completed only if hyster driver is found qualified. documented in this encounter Plan of Treatment Upcoming Encounters Date Type Department Care Team (Late st Contact Info) Description 06/22/2024 6:10 PM EST Pharmacy Pharmacy, [facility] [address] [place] [id number] [facility] [address] [place] [phone] Health Maintenance Due Date Last Done Comments Pneumococcal Vaccine: Pediatrics (0 to 5 Years) and At-Risk Patients (6 to 18 Years and 19+ Years) (2 of 2 - PCV) 02/02/2019 02/02/2018 Diabetic Foot Exam 12/24/2022 12/24/2021, 0 01/17/2021, 07/19/2019, Additional history exists Albumin/Creatinine Ratio 03/25/2023 022, 01/23/2019, 07/25/2018, Additional history exists Depression Screening 03/26/2023 03/26/2022 HbA1c 12/22/2023 06/23/2023, 01/14, 03/25/2022, Additional history exists GFR 01/31/2024 01/30/2023, 08/2021, 07/03/2021, Additional history exists Influenza Vaccine (FLU shot) (#1) 2024 06/24/2023, 03/26/2022, 05/28/2019, Additional history exists Diabetic Eye Exam 04/06/2025 04/06/2024, , 12/20/2020, Additional history exists B-12 06/10/2025 06/10/2024, 01/14, 07/03/2021, Additional history exists DTap/Tdap Vaccines (3 - Td or Tdap) 01/25/2029 01/25/2019, 01/09/2009 Lipid Panel 06/10/2029 06/10/2024, 01/14, 11/16/2021, Additional history exists Hepatitis B Vaccine Completed 07/24/2019, 05/28/2019, 01/25/2019, Additional history exists COVID-19 Vaccine Discontinued 07/04/2021, 06/2020, 09/23/2020 HIV Screening Discontinued HPV (Gardasil) Vaccine Aged Out No lo nger eligible based on patient's age to complete this topic Hepatitis C Screening Discontinued MENINGOCOCCAL (MENACTRA/MENVEO) Aged Out No longer eligible based on patient's age to complete this topic documented as of this encounter Medical Devices Not on filedocumented as of this encounter Procedures Procedure Name Priority Date/Time Associated Diagnosis Comments URINALYSIS, POINT OF CARE (ENTER/EDIT) Routine 06/11/2024 ICC Commercial Representative's Physical VISUAL ACUITY SCREEN, NURSE/TECH Routine 06/11/2024 [facility] Commercial Representative's Physical HEARING SCREEN Routine 06/11/2024 [facility] Commercial Representative's Physical documented in this encounter Results * HEARING SCREEN (06/11/2024) Ashlys Kaitlin Staton CMA - 06/11/2024 TETRATONE AUDIOGRAM RESULTS LEFT EAR 500HZ - 20, normal 1000HZ - 20, normal 2000HZ - 20, normal RIGHT EAR 500HZ - 20, normal 1000HZ - 20, normal 2000HZ - 20, normal TEST PERFORMED AND RESULTED BY: Kaitlin Staton CMA us Marianela Jenkins PA-C MEDICINE Final Resu lt * VISUAL ACUITY SCREEN, NURSE/TECH (06/11/2024) Kaitlin Lazar CMA - 06/11/2024 Visual Acuity Results: With Correction Right Eye: 20/25 Left Eye: 20/20 Both Eyes: 20/20 Color: Pass Kaitlin Staton CMA 06/11/2024 us Marianela Jenkins PA-C MEDICINE Final Resu lt * URINALYSIS, POINT OF CARE (ENTER/EDIT) (06/11/2024) Color, Urine Dark Yellow Yellow or Light Yellow Clarity, Urine Slightly Cloudy Clear Glucose, Urine 500 Negative mg/dL Bilirubin, Urine Negative Negative Ketone, Urine Negative Negative mg/dL Specific Hagerman, Urine 1.030 1.003 - 1.030 Blood, Urine Trace-lysed Negative pH, Urine 5.5 5.0 - 7.5 units Protein, Urine 100 Negative mg/dL Urobilinogen, Urine 0.2 0.2 - 1.0 mg/dL Nitrite, Urine Negative Negative Esterase, Urine Negative Negative Urine 06/11/2024 us Marianela Jenkins PA-C LAB POINT OF CARE TEST ENT ER/EDIT ORDERABLES Final Result documented in this encounter Visit Diagnoses Diagnosis ICC Commercial Representative's Physical- Primary Unspecified general medical examination documented in this encounter Care Teams Distribution Operation Supervisor Relationship Specialty Start Date End Date Autumn Castellanos CRNP [address] [place] [address] [place] [id number] PCP - General Nurse Practitioner 01/20/21 documented as of this encounter
--- OUTSIDE RECORDS SUMMARY | 2024-07-03 01:00 | External Medical Summary | Summary of Care ---
Author Name Unknown Organization [facility] Address [address] [place] [address] Phone [phone] Care Team Providers Care Environmental Scientist Name Role Phone Autumn Castellanos Primary Care Provider Reason for Visit * Reason Comments Dosage Adjustment Via Phone (anticoag Cl inic) Encounter Details Date Type Department Care Team (Late st Contact Info) Description 06/22/2024 6:10 PM [facility] Pharmacy Pharmacy, [facility] [address] [place] [address] [facility] [address] [address] Type 2 diabetes mellitus with hemoglobin A1c goal of less than 7.0% ([facility])*; HTN, goal below 140/90 Allergies Active Allergy Reactions Criticality Noted Date Comments Cat Dander 02/12/2007 Dust 02/12/2007 Shellfish Allergy Edema face/lips/tongue High 2014 fish documented as of this encounter (statuses as of 06/22/2024) Medications MULTI-VITAMIN PO TABS None Entered Active [...] hemoglobin A1c goal of less than 7.0% ([facility]) USE ONCE DAILY DX: E11.9 100 Strip 3 3 Active Silver sulfADIAZINE 1 % External Cream (Silvadene) Apply to bilateral lower extremity wounds daily 50 g 1 4 Active Additional Information Patient not taking.Reported on 04/16/2024 Ibuprofen 200 MG Oral Tablet (Motrin) Take 3 Tablets by mouth at bedtime. 3 Active Pen [place] 32G X 4 MM Use as directed. [...] as of this encounter (statuses as of 06/22/2024) Active Problems Problem Noted Date Diagnosed Date [...] as of this encounter (statuses as of 06/22/2024) Resolved Problems Problem Noted Date Diagnosed Date [...] as of this encounter (statuses as of 06/22/2024) Immunizations Name Administration Dates Next Due COVID-19 [...] 06/02/2024 Does the household have a re lar source of income? (Household - for ages [...] PM EDT documented as of this encounter Progress Notes * Farrah Valdivia, Kristine - 06/22/2024 8:18 AM EST Darius has not contacted the clinic to schedule/reschedule an appointment for diabetes management per referral from PCP despite multiple attempts to do so by our team. Patient is discharged from [facility] services at this time. Thank you, Adeel Valdivia [employer] Integrator [facility] ([facility]) 06/22/2024, 8:19 AM documented in this encounter Plan of Treatment Health Maintenance Due Date Last Done Comments [...] 03/25/2022, Additional history exists GFR 01/31/2024 01/30/2023, 06/0 08/2021, 07/03/2021, Additional history exists Influenza Vaccine [...] Not on filedocumented as of this encounter Visit Diagnoses Diagnosis Type 2 diabetes mellitus with hemoglobin A1c goal of less than 7.0% (HCC)- Primary HTN, goal below 140/90 Unspecified essential hypertension documented in this encounter Care Teams Environmental Scientist Relationship Specialty Start Date End Date Autumn Castellanos CRNP [address] [place] [id number] PCP - General Nurse Practitioner 01/20/21 documented as of this encounter
--- OUTSIDE RECORDS SUMMARY | 2024-07-03 01:00 | External Medical Summary | Summary of Care ---
Author Name Unknown Organization [facility] Address [address] [place] [address] Phone [phone] Care Team Providers Care Flexo Folder Gluer Operator Name Role Phone Autumn Castellanos Primary Care Provider Reason for Visit * Reason Comments Appointment Encounter Details Date Type Department Care Team (Late st Contact Info) Description 05/27/2024 6:10 PM [facility] Pharmacy Pharmacy, [facility] [address] [place] [address] [place] [address] Type 2 diabetes mellitus with hemoglobin A1c goal of less than 7.0% ([facility])*; HTN, goal below 140/90 Allergies Active Allergy Reactions Criticality Noted Date Comments Cat Dander 02/12/2007 Dust 02/12/2007 Shellfish Allergy Edema face/lips/tongue High 2014 fish documented as of this encounter (statuses as of 05/27/2024) Medications MULTI-VITAMIN PO TABS None Entered Active [...] goal of less than 7.0% ([facility]) USE ONCE DAILY DX: E11.9 100 Strip 3 3 Active Silver sulfADIAZINE 1 % External Cream (Silvadene) Apply to bilateral lower extremity wounds daily 50 g 1 4 Active Additional Information Patient not taking.Reported on 04/16/2024 Ibuprofen 200 MG Oral Tablet (Motrin) Take 3 Tablets by mouth at bedtime. 3 Active Pen [place] 32G X 4 MM Use as directed. [...] as of this encounter (statuses as of 05/27/2024) Active Problems Problem Noted Date Diagnosed Date [...] as of this encounter (statuses as of 05/27/2024) Resolved Problems Problem Noted Date Diagnosed Date [...] as of this encounter (statuses as of 05/27/2024) Immunizations Name Administration Dates Next Due COVID-19 [...] the money to buy more. Never true 03/25/20 23 Within the past 12 months, t he food you bought just didn't last and you didn't have money to get more. Never true 03/25/2023 Childcare Answer Date Recorded Do you feel overwhelmed with taking care of a child, family member or friend? No 03/25/2023 Does your family need help f inding childcare? (Household - for ages 0-17 years) Not on file 03/25/2023 Clothing Answer Date Recorded Have you been unable to get clothing when it was really needed? No 03/25/2023 Is your family able to get c lothes or diapers when needed? (Household - for ages 0-17 years) Not on file 03/25/2023 Personal Safety Answer Date Recorded Do you feel unsafe or have concerns for your saf ety? No 03/25/2023 Do you have concerns for you r family's safety? (Household - for ages 0-17 years) Not on file 03/25/2023 Utilities Answer Date Recorded Do you have trouble paying y our heating, water, or electric bill? (Adult - for ages 18 years and over) Not on file 04/16/2024 Is your family able to pay t he heat, water, or electric bill? (Household - for ages 0-17 years) Not on file 04/16/2024 Does your family have access to good internet? (Household - for ages 0-17 years) Not on file 04/16/2024 Employment Status Answer Date Recorded Are you unemployed or without regular income? No 03/25/2023 Does the household have a re lar source of income? (Household - for ages 0-17 years) Not on file 03/25/2023 Social Connections Answer Date Recorded How often do you feel lonely or isolated from those around you? (Adult - for ages 18 years and over) Not on file 04/16/2024 Financial Resource Strain Answer Date R ecorded Do you have any trouble payi ng for your medications, or do you think you might in the future? No 03/25/2023 Does your family have troubl e paying for medicine? (Household - for ages 0-17 years) Not on file 03/25/2023 Transportation Needs Answer Date Record ed READ ONLY Do you have troubl e getting a ride to medical visits or work? Never True 03/25/2023 Does your family have a hard time getting a ride to doctors visits? (Household - for ages 0-17 years) Not on file 03/25/2023 Has lack of transportation k ept you from medical appointments, meetings, work, or from getting things needed for daily living? Check all that apply. (Adult - for ages 18 years and over) Not on file 03/25/2023 Do you (or your family) have trouble finding or paying for a ride (transportation)? (Household - for ages 0-17 years) Not on file 03/25/2023 Housing Stability Answer Date Recorded Do you currently live in a s helter or have no steady place to sleep at night? No 03/25/2023 READ ONLY Do you think you a re at risk of becoming homeless? No 03/25/2023 Does your family worry about paying for your home or becoming homeless? (Household - for ages 0-17 years) Not on file 1 Are you homeless or worried that you might be in the future? (Adult - for ages 18 years and over) Not on file Are you (or your family) julio eless or worried that you might be in the future? (Household - for ages 0-17 years) Not on file Food Insecurity Answer Date Recorded Do you need food for this week? No 03/25/2023 Are you able to get enough f ood for your family? (Household - for ages 0-17 years) Not on file 03/25/2023 Does your family need food t his week? (Household - for ages 0-17 years) Not on file 03/25/2023 Do you always have enough fo od for your family? (Household - for ages 0-17 years) Not on file 03/25/2023 Sex and Gender Information Value Date Recorded Sex Assigned at Male 03/25/2023 1:47 PM EDT Legal Sex Male 5:57 AM EST Gender Identity Male 03/25/2023 1:47 PM EDT Sexual Orientation Choose not to disclose 2022 1:47 PM EDT documented as of this encounter Progress Notes * Janel Baeza, renal medicine physician - 05/27/2024 8:56 AM EST Patient Phone Numbers Left message on patients answering machine to schedule [facility] appointment for diabetes management. [facility] message sent --yes Clinic will follow up again in 3-4 week(s). [Attempt # 3] Thank you, Janel Baeza [employer] Man [facility] ([facility] 05/27/2024 8:56 AM documented in this encounter Plan of Treatment Upcoming Encounters Date Type Department Care Team (Late st Contact Info) Description 06/22/2024 6:10 PM EST Pharmacy Pharmacy, [facility] [address] [facility] [place] [address] [facility] [address] [facility] [place] [address] Health Maintenance Due Date Last Done Comments Pneumococcal Vaccine: Pediatrics (0 to 5 Years) and At-Risk Patients (6 to 64 Years) (2 of 2 - PCV) 02/02/2019 02/02/2018 Diabetic Foot Exam 12/24/2022 12/24/2021, 0 01/17/2021, 07/19/2019, Additional history exists Albumin/Creatinine Ratio 03/25/20232 022, 01/23/2019, 07/25/2018, Additional history exists Depression Screening 03/26/2023 03/26/2022 HbA1c 12/22/2023 06/23/2023, 01/14, 03/25/2022, Additional history exists B-12 01/31/2024 01/30/2023, 06/16, 07/25/2018 GFR 01/31/2024 01/30/2023, 06/0 08/2021, 07/03/2021, Additional history exists Influenza Vaccine (FLU shot) (#1) 2024 06/24/2023, 03/26/2022, 05/28/2019, Additional history exists Diabetic Eye Exam 04/06/2025 04/06/2024, , 12/20/2020, Additional history exists Lipid Panel 01/31/2028 01/30/2023, 06/0 08/2021, 07/03/2021, Additional history exists DTap/Tdap Vaccines (3 - Td or Tdap) 01/25/2029 01/25/2019, 01/09/2009 Hepatitis B Vaccine Completed 07/24/2019, 05/28/2019, 01/25/2019, [...] hypertension documented in this encounter Care Teams Flexo Folder Gluer Operator Relationship Specialty Start Date End Date Autumn Castellanos CRNP [address] [place] [address] PCP - General Nurse Practitioner 01/20/21 documented as of this encounter
--- OUTSIDE RECORDS SUMMARY | 2024-07-03 01:00 | External Medical Summary ---
Author Name Unknown Address Unknown Organization : Laboratory Report Ordering Provider Test Date Status DIEUDONNE JEREZ 06/11/2024 08:34:00 Final Observation Date Value Abnormality Reference (Units ) Status Color of Urine by Auto 06/11/2024 08:34:00 Dark Yellow Abnormal Light Yellow, Yellow Final Clarity, Urine 06/11/2024 08:34:00 Slightly Cloudy Abnormal Clear Final Glucose [Mass/volume] in Urine by Automated test strip 06/11/2024 08:34:00 500 Abnormal Negative (mg/dL) Final Bilirubin.total [Presence] in Urine by Automated test strip 06/11/2024 08:34:00 Negative Negative Final Ketones [Mass/volume] in Urine by Automated test strip 06/11/2024 08:34:00 Negative Negative (mg/dL) Final Specific gravity, Urine 06/11/2024 08:34:00 >=1.030 1.003-1.030 Final Hemoglobin [Presence] in Urine by Automated test strip 06/11/2024 08:34:00 Trace-lysed Abnormal Negative Final pH, Urine 06/11/2024 08:34:00 5.5 5.0, 5.5, 6.0, 6.5, 7.0, 7.5 (units) Final Protein [Mass/volume] in Urine by Automated test strip 06/11/2024 08:34:00 100 Abnormal Negative (mg/dL) Final Urobilinogen, Urine 06/11/2024 08:34:00 0.2 0.2, 1.0 (mg/dL) Final Nitrite [Presence] in Urine by Automated test strip 06/11/2024 08:34:00 Negative Negative Final Leukocyte esterase [Presence] in Urine by Automated test strip 06/11/2024 08:34:00 Negative Negative Final Performing Location
--- OUTSIDE RECORDS SUMMARY | 2024-07-03 01:00 | External Medical Summary | Summary of Care ---
Author Name Unknown Organization [facility] Address [address] [place] [address] Phone [phone] Care Team Providers Care Corporate Trust Officer Name Role Phone Autumn Castellanos Primary Care Provider Reason for Visit * Reason Comments Outpatient Testing Encounter Details Date Type Department Care Team (Late st Contact Info) Description 06/10/2024 3:30 PM EST Laboratory Laboratory, [facility] [address] [place] [address] [facility] [address] [place], [place] [id number] Encounter for long-term current use of medication; Type 2 diabetes mellitus with hemoglobin A1c goal of less than 7.0% ([facility]); Routine medical exam Allergies Active Allergy Reactions Criticality Noted Date Comments Cat Dander 02/12/2007 Dust 02/12/2007 Shellfish Allergy Edema face/lips/tongue High 2014 fish documented as of this encounter (statuses as of 06/10/2024) Medications MULTI-VITAMIN PO TABS None Entered Active [...] hemoglobin A1c goal of less than 7.0% ([facility]) USE ONCE DAILY DX: E11.9 100 Strip 3 3 Active Silver sulfADIAZINE 1 % External Cream (Silvadene) Apply to bilateral lower extremity wounds daily 50 g 1 4 Active Additional Information Patient not taking.Reported on 04/16/2024 Ibuprofen 200 MG Oral Tablet (Motrin) Take 3 Tablets by mouth at bedtime. 3 Active Pen [place] 32G X 4 MM Use as directed. [...] as of this encounter (statuses as of 06/10/2024) Active Problems Problem Noted Date Diagnosed Date [...] as of this encounter (statuses as of 06/10/2024) Resolved Problems Problem Noted Date Diagnosed Date [...] as of this encounter (statuses as of 06/10/2024) Immunizations Name Administration Dates Next Due COVID-19 [...] PM EDT documented as of this encounter Plan of Treatment Upcoming Encounters Date Type Department Care Team (Late st Contact Info) Description 06/11/2024 8:40 AM EST Office Visit Family Medicine [address] [place] [address] Marianela Jenkins PA-C [address] [place] [address] [place] [address] 06/22/2024 6:10 PM EST Pharmacy Pharmacy, [facility] [address] [facility] [place] [address] [facility] [address] [place] [address] Pending Results Name Type Priority Associated Diagnoses Date /Time VITAMIN B12 Lab Routine Encounter for long-term current use of medication 06/10/2024 3:29 PM EST LIPID PANEL WITH DIRECT LDL IF TG IS HIGH Lab Routine Type 2 diabetes mellitus with hemoglobin A1c goal of less than 7.0% (HCC) Routine medical exam 06/10/2024 3:29 PM EST Scheduled Orders Name Type Priority Associated Diagnoses Orde r Schedule VITAMIN B12 Lab Routine Encounter for long-term current use of medication Expected: 06/10/2024 (Approximate), Expires: 07/11/2025 Health Maintenance Due Date Last Done Comments [...] as of this encounter Visit Diagnoses Diagnosis Encounter for long-term current use of medication Type 2 diabetes mellitus with hemoglobin A1c goal of less than 7.0% (HCC) Routine medical exam Routine general medical examination at a health care facility documented in this encounter Care Teams Corporate Trust Officer Relationship Specialty Start Date End Date Autumn Castellanos CRNP [address] [place] [address] PCP - General Nurse Practitioner 01/20/21 documented as of this encounter
--- OUTSIDE RECORDS SUMMARY | 2024-07-03 01:00 | External Medical Summary ---
Author Name Unknown Address Unknown Organization K01:[facility] - [address] [place] [address] Laboratory Report Ordering Provider Test Date Status NAREN WALKER 06/10/2024 15:29:50 Final Observation Date Value Abnormality Reference (Units ) Status Vitamin B12 06/10/2024 15:29:50 [id number] (pg/mL) Final Performing Location [facility] [address] [place] [address]
--- OUTSIDE RECORDS SUMMARY | 2024-07-03 01:00 | External Medical Summary ---
Author Name Unknown Address Unknown Organization K01:[facility] - [address] [facility] [place] [address] Laboratory Report Ordering Provider Test Date Status JAK FRANCODEN 06/10/2024 15:29:50 Final Observation Date Value Abnormality Reference (Units ) Status Triglyceride 06/10/2024 15:29:50 110 <=174 ( mg/dL) Final Triglyceride Reference Range s (mg/dL):
<150 Acceptable
150-174 Borderline high
175-499 High
>=500 Very high Cholesterol 06/10/2024 15:29:50 127 <200 (mg /dL) Final Total Cholesterol Reference Ranges (mg/dL):
<200 Desirable
200-239 Borderline high
>=240 High HDL 06/10/2024 15:29:50 37 Below low normal >39 (mg/dL) Final HDL Cholesterol Reference Ra nges (mg/dL):
>=60 High (Desirable)
<50 Low (Undesirable) For Females
<40 Low (Undesirable) For Males NON-HDL CHOLESTEROL 06/10/2024 15:29:50 90 <=159 (mg/dL) Final Non-HDL Cholesterol Referenc e Range (mg/dL):
<100 Target level for high risk ASCVD patient
<130 Optimal for general population
130-159 Near optimal for general population
160-189 Borderline High
190-219 High
>=220 Very High LDL, (calculated) 06/10/2024 15:29:50 68 <= 129 (mg/dL) Final LDL Cholesterol Reference Ra nges (mg/dL):
<70 Target level for high risk ASCVD patient
<100 Optimal for general population
100-129 Near optimal for general population
130-159 Borderline high
160-189 High
>=190 Very high Performing Location LABORATORY [facility] - [address] [place] [address]
--- NOTE | 2024-07-03 01:23 | Ultrasound Report ---
Exam(s): US VENOUS RIGHT LOWER EXTREMITY EXAM: US Duplex Right Lower Extremity Veins CLINICAL HISTORY: Reason for exam: reddness swelling. TECHNIQUE: Real-time duplex ultrasound scan of the right lower extremity veins integrating B-mode two-dimensional vascular structure, Doppler spectral analysis, color flow Doppler imaging and compression. COMPARISON: No relevant prior studies available. FINDINGS: Deep veins: Unremarkable. No DVT in the visualized common femoral, femoral, proximal deep femoral or popliteal veins. The veins demonstrate normal color flow, are normally compressible, with normal phasic flow and/or augmentation response. Superficial veins: Unremarkable. No thrombus in the visualized great saphenous vein. Soft tissues: Soft tissue edema and enlarged right inguinal lymph nodes. IMPRESSION: 1. Enlarged right inguinal lymph nodes may be reactive. Soft tissue edema may represent cellulitis. 2. No evidence of acute DVT. Electronically signed by: Sukumar Lees M.D. 07/03/24 01:22 AM
--- NOTE | 2024-07-03 01:28 | XRay Report ---
Exam(s): XR CXR 1 VIEW EXAM: XR Chest, 1 View CLINICAL HISTORY: Reason for exam: Sepsis. TECHNIQUE: Frontal view of the chest. COMPARISON: No relevant prior studies available. FINDINGS: Lungs: Unremarkable. No consolidation. Pleural space: Unremarkable. No pleural effusion or pneumothorax. Heart: Unremarkable. No cardiomegaly or pulmonary vascular congestion. Bones/joints: No acute fracture. No dislocation. IMPRESSION: No evidence of acute cardiopulmonary disease. Electronically signed by: Sukumar Lees M.D. 07/03/24 01:27 AM
[2024-07-03] MEDS ORDERED: GLUCAGON FOR INJ 1 MG VIAL SQ PRN (02:43)
[2024-07-03] MEDS ORDERED: VANCOMYCIN CONSULT ACTIVE PRN (02:43)
[2024-07-03] MEDS ORDERED: GLUCOSE 40% GEL 15 GM TUBE PO PRN (02:43)
[2024-07-03] MEDS ORDERED: POLYETHYLENE (MIRALAX) 17 GM PACK PO PRN (02:43)
[2024-07-03] MEDS ORDERED: CARBOHYDRATES FOR HYPOGLYCEMIA PO PRN (02:43)
[2024-07-03] MEDS ORDERED: ACETAMINOPHEN 325 MG TAB PO PRN (02:43)
[2024-07-03] MEDS ORDERED: VANCOMYCIN HCL 1,000 MG/270 ML BAG IV SCH (02:43)
[2024-07-03] MEDS ORDERED: GLUCOSE 10 TAB/TUBE PO PRN (02:43)
[2024-07-03] MEDS ORDERED: DEXTROSE 50% 50 ML SYRINGE IV PRN (02:43)
[2024-07-03] MEDS: SODIUM CHLORIDE 0.9% 1,000 ML IV SCH (03:31)
[2024-07-03] MEDS: VANCOMYCIN HCL 2,750 MG in SODIUM CHLORIDE 0.9% 500 ML IV ONE (04:01)
[2024-07-03] MEDS: INSULIN ASPART PER UNIT CHARGE SC SCH (05:03)
[2024-07-03 05:48] LABS: Basophils # (auto) 0.03 K/uL (0.00-0.20); Basophils % (auto) 0.4 %; Eosinophils # (auto) 0.16 K/uL (0.00-0.50); Hematocrit (blood only) 30.6 % (42.0-52.0); Hemoglobin 10.3 g/dl (14.0-18.0); Immature Granulocytes # (auto) 0.05 K/uL (0.01-0.20); Immature Granulocytes % (auto) 0.6 %; Lymphocytes # (auto) 1.25 K/uL (1.20-3.40); Lymphocytes % (auto) 15.7 %; Mean Corpuscular Hemoglobin 25.2 pg (25.0-34.0); Mean Corpuscular Hgb Conc 33.7 g/dL (32.0-36.0); Mean Platelet Volume 10.1 fL (9.4-12.4); Monocytes % (auto) 12.6 %; Neutrophils # (auto) 5.47 K/uL (1.40-6.50); Neutrophils % (auto) 68.7 %; Platelet Count 152 K/uL (130-400); RDW Standard Deviation 35.4 fL (36.4-46.3); Red Blood Count 4.08 M/uL (4.70-6.10); White Blood Count 7.96 K/ul (4.8-10.8)
[2024-07-03 05:59] LABS: BUN Creatinine Ratio 22.4 (10-20); Calcium 7.8 mg/dl (8.6-10.3); Creatinine Clr Calc Pharmacy 154.8 ml/min; Magnesium 1.9 mg/dl (1.7-2.4); Potassium 3.3 mmol/L (3.5-5.1)
--- NOTE | 2024-07-03 07:28 | Electrocardiogram Report ---
Test Reason : Blood Pressure : */* mmHG Vent. Rate : 113 BPM Atrial Rate : 113 BPM P-R Int : 170 ms QRS Dur : 100 ms QT Int : 320 ms P-R-T Axes : 23 -33 30 degrees QTcB Int : 438 ms Sinus tachycardia Left axis deviation Incomplete right bundle branch block Abnormal ECG When compared with ECG of 01-Apr-2023 11:32, No significant change was found Confirmed by Evans Benton ([id number]) on 07/03/2024 7:27:54 AM Referred By: REFERRED SELF Confirmed By: Evans Benton
[2024-07-03] MEDS: POTASSIUM CHLORIDE CRTAB 20 MEQ TABCR PO STA ×2 (08:37→15:57)
[2024-07-03] MEDS: HEPARIN SOD 5,000 UNIT/0.5 ML VIAL SQ SCH ×2 (08:37→09:38)
[2024-07-03] MEDS: ASPIRIN 81 MG ECTAB PO SCH (08:37)
[2024-07-03] MEDS: MULTIVITAMIN TAB PO SCH (08:37)
[2024-07-03] MEDS: LISINOPRIL/HCTZ 20/25MG 1 TAB PO SCH (08:37)
[2024-07-03] MEDS: CEFEPIME 2000MG 2,000 MG/20 ML SYR IV SCH (08:38)
[2024-07-03 09:27] LABS: Estimated Average Glucose 209 mg/dl; Hemoglobin A1C 8.9 % (4.5-5.6)
[2024-07-03] MEDS: VANCOMYCIN HCL 1,750 MG in SODIUM CHLORIDE 0.9% 500 ML IV SCH (12:11)
--- NOTE | 2024-07-03 12:57 | Pharmacy Report ---
Pharmacy PK ABX Note - Date of Service July 03, 2024 - Assessment and Plan Assessment 43 year old M receiving vancomycin/cefepime for treatment of right leg cellulitis. Pertinent microbiologic data includes: blood cultures pending. Failed outpatient treatment with cephalexin. Afebrile, normal white count. Plan Vancomycin * Loading dose: 2750 mg IV x 1 * Maintenance dose: 1750 mg IV every 12 hours * Regimen is predicted to achieve target AUC/KASANDRA of 400-600 mg/L.hr * Random level ordered for 07/04 @ 1000 Pharmacy will continue to follow and will adjust dose/frequency as necessary. Thank you. Pharmacy has transitioned to AUC monitoring for vancomycin. AUC/KASANDRA is the preferred PK/PD target and is associated with decreased risk of nephrotoxicity compared to traditional trough targets.
--- NOTE | 2024-07-03 15:32 | Hospitalist Progress Note ---
Date of Service July 03, 2024 Assessment & Plan (1) Cellulitis of leg, right: Plan: 43-year-old male with past med history significant for type 2 diabetes, sleep apnea, nocturnal hypoxemia, chronic venous stasis dermatitis of both lower extremities, hypertension, obesity, history of cellulitis of left lower extremity, attention deficit non hyperactive presents with right lower EXTR cellulitis. Patient developed some erythema in the right lower extremity on 06/30/2023. Went to urgent care and prescribed Keflex 500 milligrams twice daily. But right lower extremity edema and pain was getting worse The erythema streak spreading to thighs.. Last night he had some fever. Able to ambulate but having lot of pain in the right leg. Hemodynamics are okay. Denies any chest pain or shortness of breath no nausea. No abdominal pain. Normal bowel and bladder movements. No headache no runny nose or sore throat. No cough. Cellulitis right leg Failed outpatient treatment with Keflex started on 06/30/2023 Ultrasound Doppler right lower extremity showed soft tissue swelling but no evidence of DVT Received Rocephin in the ER Continue with IV cefepime to cover Pseudomonas and Vanco Ingrowing toenails multiple toes on the right side but no evidence of local drain is that can be cultured and could be the source of infection and is spreading cellulitis Blood culture is pending Feeling better clinically Will check nasal MRSA swab and if negative will discontinue vancomycin Bilateral leg edema History of chronic venous stasis dermatitis Uses compress stockings as an outpatient Will give a small dose of Lasix to take out some of the fluid Advised to keep the legs elevated while in bed Diabetes Hyperglycemia Continue home Lantus Sliding scale Blood sugar has been running high but we will continue with the sliding scale insulin coverage on top of Lantus Obstructive sleep apnea CPAP nightly Hypertension Continue home lisinopril hydrochlorothiazide Will monitor-blood pressure seems to be on the upper side DVT prophylaxis hep sub q Disposition med floor Full code Admission and Anticipated Discharge Date Admission Date: July 02, 2024 Subjective 07/03/2024 The patient was seen and examined in medical floor in presence of the family members He has been complaining of redness and pain with swelling involving the right lower extremity since Friday Denies any fever and/or chills Denies any other significant symptoms Review of Systems Review of Systems: All systems reviewed and are unremarkable except as noted below Physical Exam Physical Exam: Lying in bed without any acute distress except some discomfort in the right lower extremity Constitutional: well developed, well nourished, + ill appearing and + obese Eyes: PERRL, conjunctivae normal, anicteric sclerae ENMT: external ear and nose normal, oropharynx normal Neck: trachea midline, no thyromegaly Respiratory: no respiratory distress Auscultation: lungs clear to auscultation bilaterally Cardiovascular: Rate/Rhythm: regular rate and regular rhythm; not tachycardic Heart Sounds: normal S1 and normal S2; no murmur Extremities: + edema (Bilateral leg edema more on the right than the left) Gastrointestinal (Abdomen): Inspection/Auscultation: normal bowel sounds; abdomen not distended Percussion/Palpation: abdomen soft; abdomen nontender Musculoskeletal: No acute arthritis involving any of the joint Skin: Erythema with increased local temperature and tenderness involving the right lower extremity mostly leg Neurologic: Alert, awake and oriented x 3. No focal sensory or motor deficit appreciated Lymphatic: no cervical or axillary lymphadenopathy No inguinal lymphadenopathy Results & Data Results & Data Vital Signs (Past 12 Hours) Vital Signs Temp Pulse Resp BP Pulse Ox O2 Del Method 07/03/24 14:53 36.7 C 94 H 20 161/80 H 96 Room Air 07/03/24 07:31 36.7 C 98 H 20 151/80 H 96 Room Air Laboratory Results Short CBC 07/02/24 07/03/24 Range/Units 22:36 05:23 WBC 9.01 7.96 (4.8-10.8) K/ul Hgb 13.0 L 10.3 L (14.0-18.0) g/dl Hct 39.0 L 30.6 L (42.0-52.0) % Plt Count 195 152 (130-400) K/uL BMP 07/02/24 07/03/24 20:50 05:23 Sodium 131 L 131 L Potassium 3.6 3.3 L Chloride 96 L 98 Carbon Dioxide 27 27 BUN 21 22 Creatinine 1.26 0.98 Glucose 317 H* 213 H Calcium 8.9 7.8 L Liver Function 07/02/24 Range/Units 20:50 Total Bilirubin 0.4 (0.2-1.0) mg/dl AST 12 L (13-39) U/L ALT 20 (7-52) U/L Alkaline Phosphatase 95 (34-104) U/L Albumin 3.9 (3.4-5.0) gm/dl Urine 07/02/24 Range/Units 20:55 Urine Color Yellow Urine Appearance Clear (Clear) Urine pH 5.5 (4.5-7.5) Ur Specific [place] 1.031 H (1.000-1.030) Urine Protein 1+ H (Negative) Urine Glucose (UA) 2+ H (Negative) Medications Administered Current Inpatient Medications Acetaminophen (Acetaminophen 325 Mg Tab) 650 mg PO Q4H PRN PRN Reason: pain/fever Stop: 08/02/24 02:42 Aspirin (Aspirin 81 Mg Ectab) 81 mg PO DAILY [facility] Stop: 08/02/24 08:59 Last Admin: 07/03/24 08:37 Dose: 81 mg Dextrose (Dextrose 50% 50 Ml Syringe) 25 - 50 ml IV UD PRN; Protocol PRN Reason: Hypoglycemia Protocol Stop: 08/02/24 02:42 Glucagon (Glucagon For Inj 1 Mg Vial) 1 mg SQ UD PRN; Protocol PRN Reason: Hypoglycemia Protocol Stop: 08/02/24 02:42 Glucose (Glucose 40% Gel 15 Gm Tube) 15 - 30 gm PO UD PRN; Protocol PRN Reason: Hypoglycemia Protocol Stop: 08/02/24 02:42 Glucose (Glucose 10 Tab/Tube) 4 - 8 tab PO UD PRN; Protocol PRN Reason: Hypoglycemia Protocol Stop: 08/02/24 02:42 Lisinopril/HCTZ (Lisinopril/Hctz 20/25mg 1 Tab) 1 tab PO DAILY [facility] Stop: 08/02/24 08:59 Last Admin: 07/03/24 08:37 Dose: 1 tab Heparin Sodium (Porcine) (Heparin Sod 5,000 Unit/0.5 Ml Vial) 7,500 units SQ Q12 [facility] Stop: 08/02/24 08:59 Last Admin: 07/03/24 09:38 Dose: 7,500 units Sodium Chloride (Nss) 1,000 mls @ 80 mls/hr IV .[id number] [facility] Stop: 07/04/24 03:42 Last Admin: 07/03/24 03:31 Dose: 80 mls/hr Cefepime HCl (Maxipime 2000mg) 2,000 mg in 20 mls @ 5 mls/min IV Q12H [facility]; Protocol Stop: 07/10/24 08:59 Last Admin: 07/03/24 08:38 Dose: 5 mls/min Vancomycin HCl 1,750 mg/ (Sodium Chloride) 535 mls @ 200 mls/hr IV Q12H [facility] Stop: 07/10/24 11:59 Last Admin: 07/03/24 12:11 Dose: 200 mls/hr Insulin Aspart (Insulin Aspart Per Unit Charge) 0 units SC ACHS [facility] Stop: 08/02/24 04:29 Last Admin: 07/03/24 12:16 Dose: 10 units Insulin Glargine (Lantus Per Unit Charge) 30 units SQ HS [facility] Stop: 08/02/24 20:59 Miscellaneous (Carbohydrates For Hypoglycemia ) 15 - 30 gm PO UD PRN PRN Reason: Hypoglycemia Protocol Stop: 08/02/24 02:42 Miscellaneous Information (Vancomycin Consult Active) 1 each N/A UD PRN PRN Reason: Consult Stop: 08/02/24 02:42 Multivitamins (Multivitamin Tab) 1 tab PO DAILY [facility] Stop: 08/02/24 08:59 Last Admin: 07/03/24 08:37 Dose: 1 tab Polyethylene Glycol (Polyethylene (Miralax) 17 Gm Pack) 17 gm PO DAILY PRN PRN Reason: Constipation Stop: 08/02/24 02:42
[2024-07-03] MEDS: FUROSEMIDE 40 MG/4 ML VIAL IV ONE (15:57)
[2024-07-03] MEDS: LANTUS PER UNIT CHARGE SQ SCH (20:23)
[2024-07-04 06:42] LABS: BUN Creatinine Ratio 16.3 (10-20); Calcium 8.5 mg/dl (8.6-10.3); Creatinine Clr Calc Pharmacy 189.6 ml/min; Potassium 3.6 mmol/L (3.5-5.1)
[2024-07-04] MEDS: FUROSEMIDE 40 MG/4 ML VIAL IV ONE (11:46)
[2024-07-04] MEDS: POTASSIUM CHLORIDE CRTAB 20 MEQ TABCR PO STA (11:46)
[2024-07-04] MEDS: VANCOMYCIN LEVEL ONE (11:47)
--- NOTE | 2024-07-04 13:12 | Pharmacy Report ---
Pharmacy PK ABX Note - Date of Service July 04, 2024 - Assessment and Plan Assessment 07/04 Blood cultures negative to date. Random level midmorning predicts subtherapeutic dosing, SCr has had further improvement. Will adjust dose accordingly. 07/03 43 year old M receiving vancomycin/cefepime for treatment of right leg cellulitis. Pertinent microbiologic data includes: blood cultures pending. Failed outpatient treatment with cephalexin. Afebrile, normal white count. Plan Vancomycin * Loading dose: 2750 mg IV x 1 * Maintenance dose: 1750 mg IV every 12 hours- subtherapeutic * Adjust to 1500 mg IV every 8 hours * Regimen is predicted to achieve target AUC/KASANDRA of 400-600 mg/L.hr * Random level ordered for 07/05 @ 1000 Pharmacy will continue to follow and will adjust dose/frequency as necessary. Thank you. Pharmacy has transitioned to AUC monitoring for vancomycin. AUC/KASANDRA is the preferred PK/PD target and is associated with decreased risk of nephrotoxicity compared to traditional trough targets.
--- NOTE | 2024-07-04 14:49 | Hospitalist Progress Note ---
Date of Service July 04, 2024 Assessment & Plan (1) Cellulitis of leg, right: Plan: 43-year-old male with past med history significant for type 2 diabetes, sleep apnea, nocturnal hypoxemia, chronic venous stasis dermatitis of both lower extremities, hypertension, obesity, history of cellulitis of left lower extremity, attention deficit non hyperactive presents with right lower EXTR cellulitis. Patient developed some erythema in the right lower extremity on 06/30/2023. Went to urgent care and prescribed Keflex 500 milligrams twice daily. But right lower extremity edema and pain was getting worse The erythema streak spreading to thighs.. Last night he had some fever. Able to ambulate but having lot of pain in the right leg. Hemodynamics are okay. Denies any chest pain or shortness of breath no nausea. No abdominal pain. Normal bowel and bladder movements. No headache no runny nose or sore throat. No cough. Cellulitis right leg Failed outpatient treatment with Keflex started on 06/30/2023 Ultrasound Doppler right lower extremity showed soft tissue swelling but no evidence of DVT Received Rocephin in the ER Continue with IV cefepime to cover Pseudomonas and Vanco Ingrowing toenails multiple toes on the right side but no evidence of local drain is that can be cultured and could be the source of infection and is spreading cellulitis Blood culture - negative Feeling better clinically Will check nasal MRSA swab and if negative will discontinue vancomycin Will discontinue vancomycin as MRSA is negative and continue cefepime Likely discharge tomorrow on oral Augmentin and to continue the 10 days course of antibiotic Ingrowing toenails Likely the port of entry for the infection Will ask the metal pickling equipment operator to evaluate Bilateral leg edema History of chronic venous stasis dermatitis Uses compress stockings as an outpatient Will give a small dose of Lasix to take out some of the fluid Advised to keep the legs elevated while in bed The leg is much improved and will give another dose of intravenous Lasix Diabetes Hyperglycemia Continue home Lantus Sliding scale Blood sugar has been running high but we will continue with the sliding scale insulin coverage on top of Lantus Obstructive sleep apnea CPAP nightly Hypertension Continue home lisinopril hydrochlorothiazide Will monitor-blood pressure seems to be on the upper side DVT prophylaxis hep sub q Disposition med floor Full code Admission and Anticipated Discharge Date Admission Date: July 02, 2024 Subjective 07/03/2024 The patient was seen and examined in medical floor in presence of the family members He has been complaining of redness and pain with swelling involving the right lower extremity since Friday Denies any fever and/or chills Denies any other significant symptoms 07/04/2024 The patient was seen and examined in medical floor He has been feeling better and the leg. Is less swollen today Denies any fever and or chills does not have any significant pain Review of Systems Review of Systems: All systems reviewed and are unremarkable except as noted below Physical Exam Physical Exam: Lying in bed without any acute distress except some discomfort in the right lower extremity Constitutional: well developed, well nourished, + ill appearing and + obese Eyes: PERRL, conjunctivae normal, anicteric sclerae ENMT: external ear and nose normal, oropharynx normal Neck: trachea midline, no thyromegaly Respiratory: no respiratory distress Auscultation: lungs clear to auscultation bilaterally Cardiovascular: Rate/Rhythm: regular rate and regular rhythm; not tachycardic Heart Sounds: normal S1 and normal S2; no murmur Extremities: + edema (Bilateral leg edema more on the right than the left) Gastrointestinal (Abdomen): Inspection/Auscultation: normal bowel sounds; abdomen not distended Percussion/Palpation: abdomen soft; abdomen nontender Musculoskeletal: No acute arthritis involving any of the joint Neurologic: normal touch/pain/proprioception and moves all extremities; no focal motor deficits Psychiatric: A+Ox3, euthymic affect Lymphatic: no cervical or axillary lymphadenopathy Results & Data Results & Data Vital Signs (Past 12 Hours) Vital Signs Temp Pulse Resp BP Pulse Ox O2 Del Method 07/04/24 07:42 36.9 C 94 H 14 145/88 H 95 Room Air Laboratory Results [facility] 07/04/24 05:52 Sodium 135 L Potassium 3.6 Chloride 100 Carbon Dioxide 30 BUN 13 Creatinine 0.80 Glucose 157 H Calcium 8.5 L Medications Administered Current Inpatient Medications Acetaminophen (Acetaminophen 325 Mg Tab) 650 mg PO Q4H PRN PRN Reason: pain/fever Stop: 08/02/24 02:42 Aspirin (Aspirin 81 Mg Ectab) 81 mg PO DAILY [facility] Stop: 08/02/24 08:59 Last Admin: 07/04/24 08:36 Dose: 81 mg Dextrose (Dextrose 50% 50 Ml Syringe) 25 - 50 ml IV UD PRN; Protocol PRN Reason: Hypoglycemia Protocol Stop: 08/02/24 02:42 Glucagon (Glucagon For Inj 1 Mg Vial) 1 mg SQ UD PRN; Protocol PRN Reason: Hypoglycemia Protocol Stop: 08/02/24 02:42 Glucose (Glucose 40% Gel 15 Gm Tube) 15 - 30 gm PO UD PRN; Protocol PRN Reason: Hypoglycemia Protocol Stop: 08/02/24 02:42 Glucose (Glucose 10 Tab/Tube) 4 - 8 tab PO UD PRN; Protocol PRN Reason: Hypoglycemia Protocol Stop: 08/02/24 02:42 Lisinopril/HCTZ (Lisinopril/Hctz 20/25mg 1 Tab) 1 tab PO DAILY [facility] Stop: 08/02/24 08:59 Last Admin: 07/04/24 08:36 Dose: 1 tab Heparin Sodium (Porcine) (Heparin Sod 5,000 Unit/0.5 Ml Vial) 7,500 units SQ Q12 [facility] Stop: 08/02/24 08:59 Last Admin: 07/04/24 08:57 Dose: 7,500 units Cefepime HCl (Maxipime 2000mg) 2,000 mg in 20 mls @ 5 mls/min IV Q12H [facility]; Protocol Stop: 07/10/24 08:59 Last Admin: 07/04/24 08:57 Dose: 5 mls/min Vancomycin HCl 1,750 mg/ (Sodium Chloride) 535 mls @ 200 mls/hr IV Q12H [facility] Stop: 07/04/24 15:00 Last Admin: 07/04/24 11:47 Dose: 200 mls/hr Vancomycin HCl 1,500 mg/ (Sodium Chloride) 530 mls @ 200 mls/hr IV Q8H [facility] Stop: 07/11/24 19:59 Insulin Aspart (Insulin Aspart Per Unit Charge) 0 units SC ACHS [facility] Stop: 08/02/24 04:29 Last Admin: 07/04/24 12:01 Dose: 7 units Insulin Glargine (Lantus Per Unit Charge) 30 units SQ HS [facility] Stop: 08/02/24 20:59 Last Admin: 07/03/24 20:23 Dose: 30 units Miscellaneous (Carbohydrates For Hypoglycemia ) 15 - 30 gm PO UD PRN PRN Reason: Hypoglycemia Protocol Stop: 08/02/24 02:42 Miscellaneous Information (Vancomycin Consult Active) 1 each N/A UD PRN PRN Reason: Consult Stop: 08/02/24 02:42 Multivitamins (Multivitamin Tab) 1 tab PO DAILY [facility] Stop: 08/02/24 08:59 Last Admin: 07/04/24 08:36 Dose: 1 tab Polyethylene Glycol (Polyethylene (Miralax) 17 Gm Pack) 17 gm PO DAILY PRN PRN Reason: Constipation Stop: 08/02/24 02:42
[2024-07-04 15:36] VITALS: RESP 16
[2024-07-04] MEDS: VANCOMYCIN HCL 1,500 MG in SODIUM CHLORIDE 0.9% 500 ML IV SCH (20:57)
[2024-07-05 07:25] VITALS: BP 142/86; TEMP 98.4; O2SAT 95
--- NOTE | 2024-07-05 11:10 | Podiatry Consultation ---
Date of Consultation July 05, 2024 Assessment & Plan (1) Cellulitis of leg, right: (2) Ingrown toenail of right foot with infection: (3) Ingrown left greater toenail: (4) Diabetic peripheral neuropathy associated with type 2 diabetes mellitus: (5) Diabetes mellitus, type 2: Diabetes mellitus tow feeder insulin use: without shelter use Diabetes mellitus complication status: with neurologic complications Diabetes mellitus complication detail: with polyneuropathy Qualified Code(s): E11.42 - Type 2 diabetes mellitus with diabetic polyneuropathy Plan Ingrown toenail right first and third toes and left first toe with associated cellulitis of the right lower extremity. All areas are cleaned with alcohol and Betadine. Slant back procedure to all ingrown nail borders. Unable to obtain any drainage from any of these areas for culture. Dressed with antibiotic ointment and dry sterile dressing. Dressing change order for once daily dressing change with antibiotic ointment and a dry sterile dressing. Patient instructed to continue to use dressings at home in the same fashion until follow-up as an outpatient. Will schedule patient to follow-up in the podiatry clinic within 2 weeks of discharge. Okay to weight-bear as tolerated in normal shoe gear. He is instructed to keep legs elevated at or above the level of his heart at all times while at rest is encouraged to continue use of compression garments following discharge. Patient educated on the effects of diabetes on the feet focused on neuropathy and the risk of developing infection and ulceration. He is encouraged to perform once daily foot checks including the bottom of the foot using a meter necessary to evaluate plantar foot signs of local soft tissue infection, irritation, injury or callus formation. Discussed benefit of diabetic shoe gear especially given his history of recurrent lower extremity infections and digital injury. Schedule patient for evaluation of the diabetic foot clinic following discharge. -No indication for further imaging of the lower extremities at this time. -Okay for discharge from podiatry standpoint on p.o. antibiotics. Patient educated on daily dressing changes and should follow-up in the podiatry clinic within 2 weeks of discharge. Procedure: Removal of ingrown toenail x 3. Verbal consent obtained from patient. No anesthesia required for procedure secondary to lower extremity peripheral neuropathy. First and third toes of the right foot first toe left foot prepped with alcohol and Betadine. Nail was split to the level of the matrix at the lateral nail border of 3 toes performed with a 4-1/2 inch standstill nail nipper without incident. Lateral border of the nail was then removed. No purulent drainage observed. all areas are flushed with Betadine, dried and dressed with antibiotic ointment and a dry sterile dressing. History of Present Illness Reason for Consultation: Paronychia right first third toes, left first toe. Associated cellulitis of the right lower extremity. Attending Physician: Korey Merritt DO History of Present Illness 43-year-old male past medical history significant for type 2 diabetes with diabetic peripheral neuropathy, recurrent venous stasis ulceration bilateral lower extremity, chronic venous stasis changes to bilateral leg, hypertension, obesity. Reports waking up Friday night last week with fever and chills. He was seen in urgent care for cellulitis of the right lower extremity on 06/30/2023 and he was seen today prescription for p.o. Keflex which she initiated on the . Despite p.o. antibiotics he continued to get increased redness swelling and pain to the right lower extremity. Presents to [facility] emergency department 07/02/2024 with increased redness and swelling to the right lower extremity. He first reports noticing ingrowing of the toenails of the right foot on the with minimal redness and drainage. He denies injuries to the digits. Denies history of recurrent ingrown toenails. Denies any pain in the toes. Denies numbness tingling or burning in the feet but he has noticed that he has decreased sensation bilaterally. Reports poorly controlled type 2 diabetes. Denies nausea vomiting fever chills at present. On admission patient received IV Rocephin and was transitioned to cefepime and vancomycin for broader coverage including Pseudomonas. Blood cultures are collected and remain negative to date. Venous ultrasound of the right lower extremity no evidence of DVT. Allergies Allergy/AdvReac Type Severity Reaction Status Date / Time Fish Containing Products Allergy Severe Swelling Verified 07/04/24 13:15 of Lip/Tongue/Throat tomato Allergy Unknown Verified 07/04/24 13:16 Home Medications Medication Instructions Recorded Confirmed Type aspirin 81 mg tablet,delayed 81 mg PO DAILY 07/02/24 07/02/24 History release insulin glargine-yfgn 100 unit/mL 30 unit subcut HS 07/02/24 07/02/24 History (3 mL) subcutaneous pen lisinopril 20 1 tab PO DAILY 07/02/24 07/02/24 History mg-hydrochlorothiazide 25 mg tablet metformin 500 mg tablet,extended 1,000 mg PO BID 07/02/24 07/02/24 History release 24 hr multivitamin 1 tab PO DAILY 07/02/24 07/02/24 History tirzepatide 5 mg/0.5 mL 5 mg subcut WK 07/02/24 07/02/24 History subcutaneous pen injector (Jaden) amoxicillin 875 mg-potassium 1 tab PO BID #14 tabs 07/05/24 Rx clavulanate 125 mg tablet bacitracin 500 unit/gram topical 1 applic topical DAILY #28 grams 07/05/24 Rx ointment nystatin 100,000 unit/gram topical 1 applic topical BID #30 grams 07/05/24 Rx cream Patient History Medical History (Updated 07/05/24 @ 11:42 by Gabriel Koehler DPM) History of local anesthesia with dental work requires twice as much per pt Diabetes mellitus, type 2 Uncontrolled per PCP records History of hypertension Surgical History (Updated 04/01/23 @ 15:38 by Peggy Manuel PA-C) History of wisdom tooth extraction History of myringotomy History of adenoidectomy Family History Father Hypertension Stroke Mother Parkinsons disease Family history of thyroid problem Social History Smoking Status: Never smoker Do You Dip or Chew Tobacco: No; Hx Alcohol Use: Yes Alcohol type: beer Alcohol Intake Frequency Comment: Occasional Hx Substance Use: No Preferred Language: Turkish Communication Ability: Effective 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 Denies pain in the feet or toes. Reports history of sleep apnea. Systems otherwise negative detailed in the history of present illness or plan. Physical Exam Physical Exam: Const: Appears well developed and well nourished. No signs of acute distress present. CV: Extremities: No cyanosis or edema. Capillary refill time is less than 2 seconds all digits of the bilateral foot. Posterior tibial and dorsalis pedis pulses are palpable bilateral. Lymph: No palpable or visible regional lymphadenopathy. Skin: Chronic venous stasis changes bilateral leg. Neuro: Loss of light touch and protective sensation to the bilateral toes. Loss of dull sharp discrimination toes bilateral. Protective sensation returns at the level of the ankle bilateral. Psych: Mood/Affect: Mood is normal. Affect is normal. Cognition: Orientation is intact to person, place and time. Focused lower extremity musculoskeletal exam: Leg: No pain with compression of the calf muscle. Chronic venous stasis changes to the bilateral leg along with scar tissue consistent with heel venous stasis ulcerations bilateral. No open wounds to the bilateral leg. Erythema and edema to the right calf and posterior leg. Erythema does not extend proximal to the knee. Ankles: Normal to inspection and palpation. +1 pitting edema bilateral. No tenderness bilaterally. Motor strength is intact. Range of motion pain-free and unlimited. Feet: Normal to inspection and palpation. No obvious instability. Motor strength is intact. Range of motion pain-free and unlimited. Ingrown toenail right lateral hallux nail border: Local increase in erythema and edema with dried sanguinous drainage surrounding the lateral nail border. Small granuloma formation of the lateral nail fold partial auto lysis of the lateral border of the nail plate. Scant serosanguineous drainage on compression of the area. There is resolving erythema to the dorsum of the right foot with erythema and edema to the right leg. Ingrown toenail lateral border of the right third nail with dried sanguinous drainage no signs of local soft tissue infection. Ingrown toenail Left lateral hallux nail border: Dried sanguinous drainage to the nail border. Dry and flaking skin surrounding proximal nail fold with superficial breakdown in skin at the midshaft of the hallux laterally. Mild periwound erythema. No lymphangitis or streaking. No other signs of local soft tissue infection of the left lower extremity. Results & Data Vital Signs (Past 12 Hours) Vital Signs Temp Pulse Resp BP Pulse Ox O2 Del Method 07/05/24 07:24 36.9 C 89 16 142/86 H 95 Room Air Diagnostic Findings Venous ultrasound right lower extremity 07/02/2024: IMPRESSION: 1. Enlarged right inguinal lymph nodes may be reactive. Soft tissue edema may represent cellulitis. 2. No evidence of acute DVT. PG Care Time/CCT Total # of Minutes Spent Total Time Spent with Patient: Total time spent is greater than 50% in coordination of care (as documented) at patient's floor/unit and/or counseling patient: [place] [address] IN/OBS CONSULT LVL 4,60M Patient Type New History Expanded Problem Focused Exam Expanded Problem Focused Medical Decision Making Low Complexity Diagnoses Cellulitis of leg, right L03.115 Ingrown toenail of right foot with infection L60.0 Ingrown left greater toenail L60.0 Diabetic peripheral neuropathy associated with type 2 diabetes mellitus E11.42 Type 2 diabetes mellitus with diabetic polyneuropathy, without long-term current use of insulin E11.42 Diabetes mellitus shelter insulin use: without shelter use Diabetes mellitus complication status: with neurologic complications Diabetes mellitus complication detail: with polyneuropathy CPT Codes REMOVE NAIL PLATE ADD-ON - 88623 ([id number]) Removal of Nail Plate - 89000 ([id number])
[2024-07-05] MEDS ORDERED: VANCOMYCIN LEVEL ONE (11:15)
--- NOTE | 2024-07-05 11:33 | Discharge Summary ---
Discharge Summary Date of Service July 05, 2024 Principal Dx & Hospital Course #1 = Principal Diagnosis (1) Cellulitis of leg, right: (2) Ingrown toenail: (3) KEYON on CPAP: (4) Tinea unguium: (5) Diabetes mellitus, type 2: (6) Tinea pedis of both feet: (7) Morbid obesity: Plan Patient presented to the emergency room with increasing swelling and erythema of the right leg. He sought outpatient treatment was initially started on Keflex however pain and swelling and redness progressed. Patient was admitted to the hospital started on broad-spectrum IV antibiotics. With these interventions he significantly improved. He screened negative for MRSA. Ultrasound lower extremity was negative for DVT. Did have evidence of some ingrown toenails. Was seen by podiatry. They recommended treating with bacitracin and dry d ressing daily and can follow-up in their office. The redness and swelling significantly improved. On the day of discharge he is afebrile. Blood cultures showed no growth. He to be transition to oral antibiotics and discharged home with outpatient follow-up with podiatry and his PCP. Notes For Next Care Provider Medication Changes From Visit Augmentin for skin infection Bacitracin for ingrown toenails Nystatin for tinea pedis Admission HPI Per Admitting Provider 43-year-old male with past med history significant for type 2 diabetes, sleep apnea, nocturnal hypoxemia, chronic venous stasis dermatitis of both lower extremities, hypertension, obesity, history of cellulitis of left lower extremity, attention deficit non hyperactive presents with right lower EXTR cellulitis. Patient developed some erythema in the right lower extremity on 06/30/2023. Went to urgent care and prescribed Keflex 500 milligrams twice daily. But right lower extremity edema and pain was getting worse The erythema streak spreading to thighs.. Last night he had some fever. Able to ambulate but having lot of pain in the right leg. Hemodynamics are okay. Denies any chest pain or shortness of breath no nausea. No abdominal pain. Normal bowel and bladder movements. No headache no runny nose or sore throat. No cough. Past medical history. As mentioned above Past surgical history. Reconstruction of middle ear and mastoid. Adenoidectomy. Social history. No smoking. Alcohol 1 beer per week. No drug use. Family history. Mother has arthritis. Parkinsonism. Thyroid disorder. Father has dyslipidemia. Hypertension. Uncle has diabetes. Maternal grandmother had parkinsonism. Admission Exam Per Admitting Provider See H&P Discharge Exam Constitutional: Alert, obese, nontoxic HEENT: Mucous membranes moist. Lungs: Clear to auscultation, decreased, no wheezes rales or rhonchi CV: S1-S2, regular Abdomen: Soft, nontender, nondistended Extremities: Right lower extremity more edematous when compared to left, erythema, tenderness, warmth significantly improved when compared to admission. Neuro: No focal deficits Psych: Cooperative, normal mood Updated Medication List Medication Instructions Recorded Confirmed Type aspirin 81 mg tablet,delayed 81 mg PO DAILY 07/02/24 07/02/24 History release insulin glargine-yfgn 100 unit/mL 30 unit subcut HS 07/02/24 07/02/24 History (3 mL) subcutaneous pen lisinopril 20 1 tab PO DAILY 07/02/24 07/02/24 History mg-hydrochlorothiazide 25 mg tablet metformin 500 mg tablet,extended 1,000 mg PO BID 07/02/24 07/02/24 History release 24 hr multivitamin 1 tab PO DAILY 07/02/24 07/02/24 History tirzepatide 5 mg/0.5 mL 5 mg subcut WK 07/02/24 07/02/24 History subcutaneous pen injector (Mounjaro) amoxicillin 875 mg-potassium 1 tab PO BID #14 tabs 07/05/24 Rx clavulanate 125 mg tablet bacitracin 500 unit/gram topical 1 applic topical DAILY #28 grams 07/05/24 Rx ointment nystatin 100,000 unit/gram topical 1 applic topical BID #30 grams 07/05/24 Rx cream Hospital Stay Data Consultations 07/02/24 21:42 ED Decision to Admit Stat 07/04/24 10:26 Consult Podiatry Routine Diagnostic Imagining Performed 07/02/24 19:52 US venous doppler LE RT Stat Reviewed imaging, laboratory and diagnostic studies. Pertinent findings as below. Blood cultures no growth Ultrasound lower extremity negative for DVT WBCs 7.9 hemoglobin 10.3 Potassium 3.6 improved Creatinine 0.8 Hemoglobin A1c 8.9% Pending Results Patient Have Any Pending Studies at Discharge: No Discharge Instructions Given to Patient (Per Discharging Provider) Clean toes and feet daily. Apply bacitracin ointment to great toes and a dry dressing daily Follow-up with podiatry Total Time Total Time Spent Total Time Spent (In Minutes): 27
[2024-07-05 11:38] VITALS: PULSE 101
== END 2024-07-05 12:13 | disposition home or self-care (01) | DRG 603 ==
LOC: ED 19:26 → 3E 23:32 → SUATTDRO 23:32 → 3E 07-03 02:17